=== PATIENT | female | born 1945 | race Caucasian/White ===

== ENCOUNTER → 2016-07-27 | Outpatient (CLI) | payer BC ==
[~2016-07-27] MED LIST: ASPI81TA28 PO; CHOL100010 PO; CITA20TA9 PO; DOXY-300 PO; HYDR12.55 PO; INSDGI SC; LEVO112T2 PO; LISI40TA PO; LORA0.5T12 PO; NVLGI SC; SIMV20TA2 PO; meclizine PO
--- NOTE | 2016-07-28 12:52 | MAMMOGRAPHY REPORT ---
BILATERAL DIGITAL SCREENING MAMMOGRAM WITH CAD: 07/27/2016 CLINICAL HISTORY: Routine screening. Patient has no complaints. TECHNIQUE: Current study was also evaluated with a Computer Aided Detection (CAD) system. Bilatera l CC and MLO views are obtained. COMPARISON: Comparison is made to exams dated: 07/23/2015 mammogram, 07/17/2014 mammogram, 07/16/2013 mammogram, 07/13/2011 mammogram - [facility], 06/22/2008, and 07/15/2012 mammogram - [facility]. BREAST COMPOSITION: The tissue of both breasts is heterogeneously dense, which may obscure small ma sses. FINDINGS: No suspicious masses, calcifications, or areas of architectural distortion are noted in e ither breast. There has been no significant interval change compared to prior exams. Scattered bilat eral benign-appearing calcifications are not significantly changed. IMPRESSION: ACR BI-RADS CATEGORY 2: BENIGN There is no mammographic evidence of malignancy. A 1 year screening mammogram is recommended. The p atient will receive written notification of the results. Approximately 10% of breast cancers are not detected with mammography. A negative mammographic repor t should not delay biopsy if a clinically suggestive mass is present. Stephani Nunez M.D. ah/:07/28/2016 07:45:59 Attending Technologist: Jesusita WILSON)(M), [facility] Computer System Specialist: Ana Herron, [facility] letter sent: Normal 1/2 BI-RADS Code: ACR BI-RADS Category 2: Benign
== END | disposition home or self-care (01) ==
LOC: C.MAMM 12:52
PROVIDERS: ATTEND Family Medicine
DX: Z12.31 Encounter for screening mammogram for malignant neoplasm of breast (principal)

== ENCOUNTER → 2016-08-30 | Outpatient (CLI) | payer BC ==
[2016-08-30 14:04] LABS: HEMATOCRIT 40.9 % (37-47); MEAN CELL VOLUME 92.1 fL (80-100); MEAN CORPUSCULAR HEMOGLOBIN 31.8 pg (25-34); MEAN CORPUSCULAR HGB CONC 34.5 g/dl (32-36); MEAN PLATELET VOLUME 10.6 fL (7.4-10.4); PLATELET COUNT 271 K/uL (130-400); RED BLOOD COUNT 4.44 M/uL (4.2-5.4); WHITE BLOOD COUNT 6.95 K/uL (4.8-10.8)
[2016-08-30 14:15] LABS: URINE APPEARANCE CLEAR (CLEAR); URINE BILIRUBIN NEG (NEG); URINE COLOR DK YELLOW; URINE NITRITE NEG (NEG); URINE PH 5.5 (4.5-7.5); URINE SPECIFIC GRAVITY 1.021 (1.000-1.030); UROBILINOGEN NEG (NEG)
[2016-08-30 14:18] LABS: MANUAL MICROSCOPIC REQUIRED? NO; REVIEW REQ? YES
[2016-08-30 14:35] LABS: URINE PROTIEN/CREAT RATIO 0.4 (0-0.2); URINE TOTAL PROTEIN 114.9 mg/dl (0-11.9)
[2016-08-30 17:15] LABS: BLOOD UREA NITROGEN 31 mg/dl (7-18); BUN/CREATININE RATIO 22.1 (10-20); CALCIUM 9.7 mg/dl (8.5-10.1); CARBON DIOXIDE 22 mmol/L (21-32); CHLORIDE 103 mmol/L (98-107); GLUCOSE 177 mg/dl (70-99); POTASSIUM 2.9 mmol/L (3.5-5.1); SODIUM 138 mmol/L (136-145)
[2016-08-30 17:16] LABS: PHOSPHORUS 2.4 mg/dl (2.5-4.9)
== END | disposition home or self-care (01) ==
LOC: C.LABBC 12:17
PROVIDERS: ATTEND Internal Medicine Nephrology
DX: N18.3 Chronic kidney disease, stage 3 (moderate) (principal); I12.9 Hypertensive chronic kidney disease with stage 1 through stage 4 chronic kidney disease, or unspecified chronic kidney disease; D64.9 Anemia, unspecified; N25.81 Secondary hyperparathyroidism of renal origin; E55.9 Vitamin D deficiency, unspecified

== ENCOUNTER → 2016-09-23 | Outpatient (CLI) | payer BC ==
[2016-09-23 11:15] LABS: BLOOD UREA NITROGEN 19 mg/dl (7-18); BUN/CREATININE RATIO 17.1 (10-20); CALCIUM 9.2 mg/dl (8.5-10.1); CARBON DIOXIDE 32 mmol/L (21-32); CHLORIDE 104 mmol/L (98-107); GLUCOSE 80 mg/dl (70-99); MAGNESIUM 1.6 mg/dl (1.8-2.4); PHOSPHORUS 2.1 mg/dl (2.5-4.9); POTASSIUM 3.3 mmol/L (3.5-5.1); SODIUM 143 mmol/L (136-145)
== END | disposition home or self-care (01) ==
LOC: C.LABBC 09:50
PROVIDERS: ATTEND Internal Medicine Nephrology
DX: N18.3 Chronic kidney disease, stage 3 (moderate) (principal); D64.9 Anemia, unspecified; N25.81 Secondary hyperparathyroidism of renal origin; F41.9 Anxiety disorder, unspecified; N20.0 Calculus of kidney; E55.9 Vitamin D deficiency, unspecified

== ENCOUNTER → 2017-02-27 | Outpatient (CLI) | payer BC ==
[2017-02-27 16:55] LABS: HEMATOCRIT 41.3 % (37-47); MEAN CELL VOLUME 97.2 fL (80-100); MEAN CORPUSCULAR HEMOGLOBIN 32.9 pg (25-34); MEAN CORPUSCULAR HGB CONC 33.9 g/dl (32-36); MEAN PLATELET VOLUME 10.5 fL (7.4-10.4); PLATELET COUNT 277 K/uL (130-400); RED BLOOD COUNT 4.25 M/uL (4.2-5.4); WHITE BLOOD COUNT 7.15 K/uL (4.8-10.8)
[2017-02-27 17:08] LABS: URINE APPEARANCE CLEAR (CLEAR); URINE BILIRUBIN NEG (NEG); URINE COLOR YELLOW; URINE NITRITE NEG (NEG); URINE PH 6.5 (4.5-7.5); UROBILINOGEN NEG (NEG)
[2017-02-27 17:09] LABS: MANUAL MICROSCOPIC REQUIRED? NO; REVIEW REQ? NO
[2017-02-27 17:17] LABS: BLOOD UREA NITROGEN 29 mg/dl (7-18); BUN/CREATININE RATIO 20.4 (10-20); CALCIUM 9.7 mg/dl (8.5-10.1); CARBON DIOXIDE 30 mmol/L (21-32); CHLORIDE 101 mmol/L (98-107); GLUCOSE 169 mg/dl (70-99); PHOSPHORUS 2.1 mg/dl (2.5-4.9); POTASSIUM 3.3 mmol/L (3.5-5.1); SODIUM 137 mmol/L (136-145)
[2017-02-27 17:25] LABS: URINE PROTIEN/CREAT RATIO 0.5 (0-0.2); URINE TOTAL PROTEIN 81.2 mg/dl (0-11.9)
== END | disposition home or self-care (01) ==
LOC: C.LABBC 14:08
PROVIDERS: ATTEND Internal Medicine Nephrology
DX: N18.3 Chronic kidney disease, stage 3 (moderate) (principal); I10 Essential (primary) hypertension; E11.9 Type 2 diabetes mellitus without complications; D64.9 Anemia, unspecified; E55.9 Vitamin D deficiency, unspecified; E87.6 Hypokalemia

== ENCOUNTER → 2017-05-31 | Outpatient (CLI) | payer BC ==
[2017-05-31 13:29] LABS: BLOOD UREA NITROGEN 29 mg/dl (7-18); BUN/CREATININE RATIO 19.6 (10-20); CALCIUM 9.7 mg/dl (8.5-10.1); CARBON DIOXIDE 29 mmol/L (21-32); CHLORIDE 99 mmol/L (98-107); GLUCOSE 264 mg/dl (70-99); POTASSIUM 3.3 mmol/L (3.5-5.1); SODIUM 137 mmol/L (136-145)
[2017-05-31 13:30] LABS: PHOSPHORUS 2.1 mg/dl (2.5-4.9)
== END | disposition home or self-care (01) ==
LOC: C.LABBC 11:21
PROVIDERS: ATTEND Internal Medicine Nephrology
DX: I12.9 Hypertensive chronic kidney disease with stage 1 through stage 4 chronic kidney disease, or unspecified chronic kidney disease (principal); N18.3 Chronic kidney disease, stage 3 (moderate); N25.81 Secondary hyperparathyroidism of renal origin; D64.9 Anemia, unspecified; E55.9 Vitamin D deficiency, unspecified; E87.6 Hypokalemia

== ENCOUNTER → 2017-10-23 | Outpatient (CLI) | payer BC ==
[2017-10-23 13:27] LABS: HEMATOCRIT 41.8 % (37-47); HEMOGLOBIN 13.9 g/dL (12.0-16.0); MEAN CELL VOLUME 95.7 fL (80-100); MEAN CORPUSCULAR HEMOGLOBIN 31.8 pg (25-34); MEAN CORPUSCULAR HGB CONC 33.3 g/dl (32-36); MEAN PLATELET VOLUME 10.5 fL (7.4-10.4); PLATELET COUNT 240 K/uL (130-400); RED CELL DISTRIBUTION WIDTH CV 14.2 % (11.5-14.5); WHITE BLOOD COUNT 6.76 K/uL (4.8-10.8)
[2017-10-23 14:12] LABS: ALBUMIN 3.4 gm/dl (3.4-5.0); BLOOD UREA NITROGEN 25 mg/dl (7-18); CALCIUM 8.7 mg/dl (8.5-10.1); CARBON DIOXIDE 29 mmol/L (21-32); CREATININE 1.27 mg/dl (0.60-1.20); GLUCOSE 209 mg/dl (70-99); POTASSIUM 3.6 mmol/L (3.5-5.1); SODIUM 139 mmol/L (136-145)
[2017-10-23 14:13] LABS: PHOSPHORUS 2.5 mg/dl (2.5-4.9)
== END | disposition home or self-care (01) ==
LOC: C.LABBC 11:52
PROVIDERS: ATTEND Internal Medicine Nephrology
DX: N18.3 Chronic kidney disease, stage 3 (moderate) (principal); I12.9 Hypertensive chronic kidney disease with stage 1 through stage 4 chronic kidney disease, or unspecified chronic kidney disease; D64.9 Anemia, unspecified; N25.81 Secondary hyperparathyroidism of renal origin; N20.0 Calculus of kidney; E55.9 Vitamin D deficiency, unspecified

== ENCOUNTER 2019-07-09 11:49 | Inpatient (IN) ==
[2019-07-09] MEDS ORDERED: ONDANSETRON INJ 2 MG/ML 2 ML VIAL IV STA (12:32)
[2019-07-09] MEDS ORDERED: SODIUM CHLORIDE 0.9% 1000ML 1,000 ML IV ONE (12:32)
[2019-07-09 12:41] LABS: Basophils # (auto) 0.02 K/uL (0-0.2); Basophils % (auto) 0.2 %; Eosinophils # (auto) 0.01 K/uL (0-0.5); Eosinophils % (auto) 0.1 %; Hematocrit (blood only) 44.4 % (37-47); Hemoglobin 15.3 g/dL (12.0-16.0); Immature Granulocytes # (auto) 0.02 K/uL (0.00-0.02); Immature Granulocytes % (auto) 0.2 %; Lymphocytes % (auto) 7.2 %; Mean Corpuscular Hemoglobin 31.5 pg (25-34); Mean Corpuscular Hgb Conc 34.5 g/dL (32-36); Mean Corpuscular Volume 91.5 fL (80-100); Mean Platelet Volume 11.8 fL (7.4-10.4); Monocytes # (auto) 0.76 K/uL (0.11-0.59); Monocytes % (auto) 6.8 %; Neutrophils # (auto) 9.57 K/uL (1.4-6.5); Neutrophils % (auto) 85.5 %; Platelet Count 170 K/uL (130-400); RDW Coefficient of Variation 14.8 % (11.5-14.5); RDW Standard Deviation 49.4 fL (36.4-46.3); Red Blood Count 4.85 M/uL (4.2-5.4); White Blood Count 11.18 K/uL (4.8-10.8)
[2019-07-09 12:49] LABS: Albumin Level 3.2 gm/dl (3.4-5.0); BUN Creatinine Ratio 11.5 (10-20); Calcium 9.1 mg/dl (8.5-10.1); Creatinine Clr Calc Pharmacy 39.5 ml/min; Est GFR (African American) 41.1; Est GFR (Non-African American) 35.5; Magnesium 1.3 mg/dl (1.8-2.4); Potassium 2.6 mmol/L (3.5-5.1)
[2019-07-09 13:04] LABS: Albumin Globulin Ratio 0.7 (0.9-2); Bilirubin,Total 1.6 mg/dl (0.2-1); Globulin 4.5 gm/dl (2.5-4.0); Thyroid Stimulating Hormone 0.037 uIu/ml (0.300-4.500); Total Protein 7.7 gm/dl (6.4-8.2); Troponin I 0.09 ng/ml (0-0.045)
[2019-07-09] MEDS ORDERED: POTASSIUM CHLORIDE 20 MEQ TABCR PO STA (13:08)
[2019-07-09] MEDS ORDERED: POTASSIUM CHLORIDE / WTR 10 MEQ/100 ML PLCT IV ONE (13:08)
[2019-07-09 13:19] LABS: T4 Free Thyroxine 3.1 ng/dl (0.8-1.6)
[2019-07-09 13:21] LABS: Appearance Urine Cloudy (Clear); Bacteria Urine Automated 4+ (Negative); Bilirubin Urine Negative (Negative); Blood Urine 2+ (Negative); Color Urine Dark Yellow; Glucose Urine UA Negative (Negative); Ketones Urine 2+ (Negative); Leukocyte Esterase Urine 2+ (Negative); Nitrite Urine Positive (Negative); Protein Urine 3+ (Negative); Urobilinogen Urine Negative (Negative); WBC Urine Automated >30 /hpf (0-5)
--- NOTE | 2019-07-09 13:29 | XRay Report ---
XR chest 1V portable CLINICAL HISTORY: 74 years-old Female presenting with weakness. TECHNIQUE: Portable upright AP view of the chest was obtained. COMPARISON: 03/14/2016. FINDINGS: Atherosclerosis of the aortic arch. Cardiac silhouette mildly enlarged. Prominence of the main pulmon louann artery. Interstitial prominence. Elevation of the right hemidiaphragm as on prior exam. Diffuse c oarsened lung markings. The reticulonodular appearance likely relates to pulmonary vasculature and in terstitium. No other focal opacity. No large effusion or pneumothorax. Osteopenia suspected. Gaseous distention of colon beneath the diaphragm. IMPRESSION: 1. Mild cardiomegaly with suspected volume overload and congestive change. Less likely the reticulon odular appearance could suggest a diffuse mild infiltrate. 2. Chronic mildly low lung volumes. ACT 112: Negative or not required by law. Electronically signed by: Justin Perry M.D. 07/09/2019 1:28 PM
[2019-07-09] MEDS ORDERED: CEFEPIME 2,000 MG/20 ML VIAL IV STA (13:42)
[2019-07-09] MEDS: MAGNESIUM SULFATE / D5W 1 GM/100 ML BAG IV SCH ×2 (13:44→15:19)
--- NOTE | 2019-07-09 14:37 | Electrocardiogram Report ---
Test Reason : Blood Pressure : / mmHG Vent. Rate : 088 BPM Atrial Rate : 088 BPM P-R Int : 194 ms QRS Dur : 094 ms QT Int : 400 ms P-R-T Axes : 042 223 -11 degrees QTc Int : 484 ms Sinus rhythm with Premature atrial complexes with Aberrant conduction Right superior axis deviation Nonspecific T wave abnormality Anterior leads Prolonged QT Abnormal ECG When compared with ECG of 14-MAR-2016 20:40, Premature ventricular complexes now present Right bundle branch block is no longer Present Confirmed by Burak Partida ([id number]) on 07/09/2019 2:36:49 PM Referred By: Confirmed By:Burak Partida
--- NOTE | 2019-07-09 15:52 | History & Physical Report ---
Date of Service July 09, 2019 Assessment & Plan (1) Weakness: (2) UTI (urinary tract infection): -Admit to [facility] with telemetry -Patient presenting from home with reports of generalized weakness and increased tremors -In the ED, UA suggestive of UTI; also found to be hypokalemic and hy pomagnesemic -Does not appear septic -S/p cefepime in the ED, will continue with IV ceftriaxone; no prior history of resistant bacteria -Follow urine and blood cultures -PT/OT (3) Diarrhea: -Possibly viral gastroenteritis -No abdominal pain or vomiting -Check stool culture and C. difficile (4) Elevated troponin: -Troponin 0.09 -Likely demand ischemia in the setting of acute illness and dehydration -EKG without acute ST changes -Continue cycle cardiac enzymes, check resting echo given murmur noted on exam (5) Hypomagnesemia: (6) Hypokalemia: -K+ 2.6, MG +1.3 -Likely due to GI loss from diarrhea -Replace, follow electrolytes (7) Hypothyroidism: WEIGHTLOSS -TSH 0.037, free T4 3.1; may be contributing to patient's worsening tremor -will reduce home dose of levothyroxine from 250 mcg daily to 225 mcg daily -Follow-up labs as an outpatient in 4 to 6 weeks -patient reports 20 pound weight loss over 2 months; consider EGD versus colonoscopy as outpatient (8) Diastolic dysfunction: -Echo 10/2018: EF 62%, grade 1 diastolic dysfunction, mild aortic valve stenosis -Appears dry on exam, holding Lasix (9) DM type 2 (diabetes mellitus, type 2): -Hgb A1c 7.8 05/2019 -Lantus and NovoLog per protocol while hospitalized (10) Hypertension: -BP controlled, continue losartan (11) Chronic kidney disease, stage III (moderate): - baseline creat runs in the low to mid 1s - creat noted to be 1.4 today - continue to monitor, avoid nephrotoxic agents when able (12) DVT prophylaxis: -SQ heparin History of Present Illness Chief Complaint: Weakness, tremors Primary Care Provider: Forrest Ortega DO 74-year-old female who presents the ED for evaluation of generalized weakness and tremors. Patient reports she has not been feeling well for the past couple of days. She is noted increased generalized weakness and tremors. She reports that typically she can ambulate with her walker however has not been able to do that. She also has been having diarrhea, reports 3-4 episodes per day. Denies bright red bleeding per rectum or dark tarry stools. Reports her appetite has been very poor, which is been ongoing issue for the past several weeks. Patient reports a 20 pound unintentional weight loss over the past couple of months. No abdominal pain, nausea, vomiting. She denies fevers and chills. No chest pain. Reports chronic exertional shortness of breath which is unchanged from baseline. She has lower extremity edema which is unchanged from baseline as well. No orthopnea. She denies lightheadedness, dizziness, diaphoresis, syncopal events. No urinary symptoms. In the ED, UA suggest UTI. Labs show K+ 2.6, MG +1.3, mildly elevated troponin 0.09, TSH 0.037, free T4 3.1. Patient was given IV cefepime, potassium and magnesium replacements, IVF. Allergies Allergy/AdvReac Type Severity Reaction Status Date / Time Sulfa (Sulfonamide Allergy Mild Rash Verified 07/09/19 13:43 Antibiotics) cefuroxime Allergy Unknown UNKNOWN Verified 07/09/19 13:43 primidone Allergy Unknown EAR Verified 07/09/19 13:43 RINGING, DIZZY Home Medications Home Medications Medication Instructions Recorded Confirmed Type cholecalciferol (vitamin D3) 1,000 unit PO DAILY 11/16/18 07/09/19 History [Vitamin D3] furosemide [Lasix] 20 mg PO DAILY 11/16/18 07/09/19 History insulin aspart U-100 [Novolog 0 unit SUBCUT DIRECTED 11/16/18 07/09/19 History Flexpen U-100 Insulin] insulin glargine [Lantus Solostar 22 unit SUBCUT HS 11/16/18 07/09/19 History U-100 Insulin] losartan 100 mg tablet 100 mg PO DAILY #30 tab 03/12/19 07/09/19 Rx hydroxyzine HCl 25 mg tablet 25 mg PO HS PRN 05/29/19 07/09/19 History Juice Plus Fibre Liquid 4 cap PO BID 07/09/19 07/09/19 History aspirin 650 mg PO DAILY 07/09/19 07/09/19 History atorvastatin 40 mg PO DAILY 07/09/19 07/09/19 History levothyroxine 50 mcg PO QAM 07/09/19 07/09/19 History levothyroxine 200 mcg PO QAM 07/09/19 07/09/19 History potassium chloride 10 meq PO TID 07/09/19 07/09/19 History Past Med/Surg History Family History Mother Diabetes Father Heart disease Social History Preferred Language: Tongan Communication Ability: Effective Electrolog Operator Required: No Beliefs That Will Affect Care: None Current Living Situation: Alone Other Information That Helps Us Care for You: No Feels Safe at Home: Yes Safety Concerns: Feels Safe At This Time Smoking Status: Never smoker Hx Alcohol Use: No Hx Substance Use: No Review of Systems Review of Systems: ROS per HPI, all other systems reviewed and negative Physical Exam Constitutional: WD/WN, vitals as above + frail appearing Eyes: PERRL, conjunctivae normal, anicteric sclerae ENMT: Ears: no external ear abnormality Nose: no external nose abnormality Mouth: + dry oral mucous membranes Respiratory: normal respiratory effort, lungs clear to auscultation Cardiovascular: Rate/Rhythm: regular rate and regular rhythm Heart Sounds: + murmur (Grade 3/6, systolic) Vessels: normal peripheral pulses Extremities: + pedal edema (+1-2, bilateral) Gastrointestinal (Abdomen): normal bowel sounds, soft, nontender, no hepatosplenomegaly Musculoskeletal: no cyanosis or clubbing, extremities motor strength 5/5 Skin: no rashes, warm and dry Neurologic: PERRL, EOMI, accommodation nl, no face palsy, no dysarthria Psychiatric: Orientation: alert and oriented x 3 Affect: + tearful affect Results & Data Vital Signs (Past 12 Hours) Vital Signs Temp Pulse Resp BP Pulse Ox 07/09/19 14:04 85 24 142/79 H 97 07/09/19 13:30 84 27 H 154/81 H 97 07/09/19 13:00 87 28 H 131/79 98 07/09/19 12:30 84 24 123/69 97 07/09/19 11:57 36.5 C 97 H 18 142/106 H 92 07/09/19 11:55 88 L Laboratory Results Short CBC 07/09/19 Range/Units 12:00 WBC 11.18 H (4.8-10.8) K/uL Hgb 15.3 (12.0-16.0) g/dL Hct 44.4 (37-47) % Plt Count 170 (130-400) K/uL BMP 07/09/19 12:00 Sodium 135 L Potassium 2.6 L Chloride 96 L Carbon Dioxide 31 BUN 17 Creatinine 1.43 H Glucose 200 H Calcium 9.1 Cardiac Enzymes 07/09/19 Range/Units 12:00 Troponin I 0.090 H* (0-0.045) ng/ml Liver Function 07/09/19 Range/Units 12:00 Total Bilirubin 1.6 H (0.2-1) mg/dl AST 23 (15-37) U/L ALT 21 (12-78) U/L Alkaline Phosphatase 72 (45-117) U/L Albumin 3.2 L (3.4-5.0) gm/dl Urine 07/09/19 Range/Units 12:58 Urine Color Dark Yellow Urine Appearance Cloudy A (Clear) Urine pH 6.0 (4.5-7.5) Ur Specific Sharon 1.020 (1.000-1.030) Urine Protein 3+ H (Negative) Urine Glucose (UA) Negative (Negative) Diagnostic Findings CXR IMPRESSION: 1. Mild cardiomegaly with suspected volume overload and congestive change. Less likely the reticulonodular appearance could suggest a diffuse mild infiltrate. 2. Chronic mildly low lung volumes. Code Status & VTE Plan Code Status Patient is a DNR as per my discussion with her. VTE Prophylaxis Plan VTE Prophylaxis will be ordered: Yes Supervising Physician Co-Signing Physician Notes I, Dr. Dewayne Carnes, have seen and examined the patient with nurse practitioner and would like to comment that: URINARY TRACT INFECTION HYPOKALEMIA HYPOMAGNESAEMIA ELEVATED TROPONINS HYPERTENSION HYPOTHYROIDISM (LEVOTHYROXINE SUPPLEMENTS AT HOME BUT LABS SUGGESTS TOO MUCH THYROID MEDICATION) WEIGHTLOSS VITAMIN D DEFICIENCY (ON VITAMIN D SUPPLEMENTS AT HOME) TYPE 2 DIABETES MELLITUS WITH RETIREMENT CURRENT USE OF INSULIN Chronic Bilateral Lower extremity Edema -leukocytosis of 11,000 with bacteria in the urine. ER provider gave cefepime. Patient to be on IV antibiotics for urinary tract infection and to await urine cultures to return -admission potassium 2.6 and ED provider started potassium supplementation and magnesium supplementation. Hospitalist team will continue supplementations of potassium and magnesium and trend the labs. Correcting serum magnesium to 2 will also help correct serum potassium to target 3.5 to 4 -will hold home Lasix for now until electrolytes improves -elevated initial troponin of 0.09. will trend labs and have patient monitored on telemetry, echocardiogram -monitor blood pressure off diuretics, can continue home dose losartan, continue home dose metoprolol succinate and asprin -Hypothyroidism. Levothyroxine supplements at home but labs suggests too much thyroid medication because TSH is 0.037 which is low and Free T4 is 3.1 which is high. Patient may benefit from cutting down the home dose 50 mcg daily to 25 mcg daily and then have repeat thyroid function tests by family medical doctor in 3 to 4 weeks after hospital discharge -in regards to weight loss -PT/OT evaluations for ambulation with bilateral lower extremity swelling which is reported to be chronic -on vitamin D supplements at home, check vitamin D levels -insulin as per protocol in regards to Type 2 Diabetes Mellitus with longer term current use of insulin -Agree with assessment and plan of nurse practitioner for other medical issues as described On Physical Exam General: no acute distress Neuro: extraoccular movements of eyes intact. no facial droop. Lungs: clear to asucultation bilaterally Heart: regular rate, murmur appreciated Abdomen: soft, nontender, positive bowel Extremities: bilateral lower extremity edema My colleague Dr. Freire will be following the patient as hospitalist starting on 07/10/2019 (1) UTI (urinary tract infection) Hematuria presence: with hematuria Urinary tract infection type: site unspecified Qualified Code(s): N39.0 - Urinary tract infection, site not specified; R31.9 - Hematuria, unspecified
[2019-07-09] MEDS ORDERED: GLUCOSE 40% GEL 15 GM TUBE PO PRN (17:09)
[2019-07-09] MEDS ORDERED: GLUCOSE 10 TABS/TUBE PO PRN (17:09)
[2019-07-09] MEDS ORDERED: cefTRIAXone SODIUM 1,000 MG/50 ML BAG IV SCH (17:09)
[2019-07-09] MEDS ORDERED: CARBOHYDRATES FOR HYPOGLYCEMIA PO PRN (17:09)
[2019-07-09] MEDS ORDERED: GLUCAGON FOR INJ 1 MG VIAL SQ PRN (17:09)
[2019-07-09] MEDS ORDERED: DEXTROSE 50% 50 ML SYRINGE IV PRN (17:09)
[2019-07-09] MEDS: NSS + 20MEQ KCL 20 MEQ/1,000 ML BAG IV SCH (17:48)
[2019-07-09 17:56] LABS: Creatinine Clr Calc Pharmacy 43.1 ml/min; Est GFR (African American) 45.7; Est GFR (Non-African American) 39.5; Potassium 2.9 mmol/L (3.5-5.1)
[2019-07-09 18:13] LABS: Phosphorus 3.2 mg/dl (2.5-4.9); Troponin I 0.093 ng/ml (0-0.045)
[2019-07-09] MEDS: INSULIN ASPART 100 UNITS/ML 3 ML PEN SC SCH ×2 (18:32→20:52)
[2019-07-09] MEDS ORDERED: POTASSIUM CHLORIDE 20 MEQ TABCR PO ONE (19:20)
[2019-07-09 19:53] LABS: BUN Creatinine Ratio 14.1 (10-20); Calcium 8.6 mg/dl (8.5-10.1); Creatinine Clr Calc Pharmacy 44.8 ml/min; Est GFR (African American) 47.9; Est GFR (Non-African American) 41.4; Magnesium 1.8 mg/dl (1.8-2.4); Potassium 3.2 mmol/L (3.5-5.1)
[2019-07-09 19:59] LABS: Troponin I 0.087 ng/ml (0-0.045)
--- NOTE | 2019-07-09 20:06 | Emergency Department Note ---
Entered by Catalina Patrick acting as a scribe for Theron Dyer MD History of Present Illness General Chief complaint: Illness Time Seen by Provider: 07/09/19 12:21 Source: patient and family (son) History of Present Illness Onset (ago): hour(s) (last night) Location: head Pain Consistency: + other (episode) Quality: + other (weakness) Associated symptoms: + denies other symptoms (cough, congestion, body aches, urinary symptoms) and + other (diffuse tremors, inability to ambulate with walker, incontinence in stool) The patient is a 74 year old female that is presenting to the Emergency Room with complaints of persistent weakness that started last night. The patient reports that she has had diffuse tremors and that she is unable to use her walker secondary to these symptoms. She states that she was incontinent of stool and urine last night. She notes that she felt too weak to get to the bathroom in time. She reports that she feels very thirsty and that her mouth is dry. The patient states that she has a history of tremors that is usually managed with medication. She notes that she is unsure of any diagnosis for these tremors. She reports that she has had a loss of appetite for the past 3 weeks and has lost weight as a result. She denies any recent cough, congestion, body aches, or urinary symptoms. The patients son notes that there was a miscommunication regarding the patients insulin dosage with her PCP just prior to the onset of the symptoms which resulted in the patient taking too much insulin. The patient notes that she saw her neurologist last week without any acute findings. She reports that she lives at home alone without any regular visits from a caregiver. Home Medications Home Medications Medication Instructions Recorded Confirmed Type cholecalciferol (vitamin D3) 1,000 unit PO DAILY 11/16/18 07/09/19 History [Vitamin D3] furosemide [Lasix] 20 mg PO DAILY 11/16/18 07/09/19 History insulin aspart U-100 [Novolog 0 unit SUBCUT DIRECTED 11/16/18 07/09/19 History Flexpen U-100 Insulin] insulin glargine [Lantus Solostar 22 unit SUBCUT HS 11/16/18 07/09/19 History U-100 Insulin] losartan 100 mg tablet 100 mg PO DAILY #30 tab 03/12/19 07/09/19 Rx hydroxyzine HCl 25 mg tablet 25 mg PO HS PRN 05/29/19 07/09/19 History Juice Plus Fibre Liquid 4 cap PO BID 07/09/19 07/09/19 History aspirin 650 mg PO DAILY 07/09/19 07/09/19 History atorvastatin 40 mg PO DAILY 07/09/19 07/09/19 History levothyroxine 50 mcg PO QAM 07/09/19 07/09/19 History levothyroxine 200 mcg PO QAM 07/09/19 07/09/19 History potassium chloride 10 meq PO TID 07/09/19 07/09/19 History Allergies Allergy/AdvReac Type Severity Reaction Status Date / Time Sulfa (Sulfonamide Allergy Mild Rash Verified 07/09/19 13:43 Antibiotics) cefuroxime Allergy Unknown UNKNOWN Verified 07/09/19 13:43 primidone Allergy Unknown EAR Verified 07/09/19 13:43 RINGING, DIZZY Past Med/Surg History Medical History Chronic kidney disease, stage III (moderate) Diastolic dysfunction DM type 2 (diabetes mellitus, type 2) Hypertension Hypothyroidism KAREEM (obstructive sleep apnea) Surgical History History of cataract surgery History of tubal ligation Family History Mother Diabetes Father Heart disease Social History Preferred Language: Icelandic Communication Ability: Effective 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 and A total of 10 systems reviewed and were otherwise negative Physical Exam Vital Signs Vital Signs - 24 hr 07/09/19 11:55 07/09/19 11:57 07/09/19 12:30 Temperature 36.5 C Temperature Source Oral Pulse Rate 97 H 84 Pulse Rate from SpO2 Sensor 80 Respiratory Rate 18 24 Respiratory Effort / Characteristics Spontaneous Blood Pressure 142/106 H 123/69 Blood Pressure Mean 118 81 Blood Pressure Position Lying Pulse Oximetry 88 L 92 97 Oxygen Delivery Method Room Air Room Air Nasal Cannula Oxygen Flow Rate 0 2 Sepsis Recent Fever Within 48 Hours No Sepsis New/Unexplained Change in Mental Status No Sepsis Action Taken by Nursing No Action Required Oxygen Flow Rate - Titration 2 Pulse Oximetry Post Tiitration 99 07/09/19 13:00 07/09/19 13:30 07/09/19 14:04 Temperature Temperature Source Pulse Rate 87 84 85 Pulse Rate from SpO2 Sensor 86 84 85 Respiratory Rate 28 H 27 H 24 Respiratory Effort / Characteristics Blood Pressure 131/79 154/81 H 142/79 H Blood Pressure Mean 97 113 105 Blood Pressure Position Pulse Oximetry 98 97 97 Oxygen Delivery Method Nasal Cannula Nasal Cannula Nasal Cannula Oxygen Flow Rate 2 2 2 Sepsis Recent Fever Within 48 Hours Sepsis New/Unexplained Change in Mental Status Sepsis Action Taken by Nursing Oxygen Flow Rate - Titration Pulse Oximetry Post Tiitration 07/09/19 14:30 07/09/19 15:00 Temperature Temperature Source Pulse Rate 87 83 Pulse Rate from SpO2 Sensor 87 82 Respiratory Rate 29 H 27 H Respiratory Effort / Characteristics Blood Pressure 142/77 H 139/67 Blood Pressure Mean 96 92 Blood Pressure Position Pulse Oximetry 98 98 Oxygen Delivery Method Nasal Cannula Nasal Cannula Oxygen Flow Rate 1 1 Sepsis Recent Fever Within 48 Hours Sepsis New/Unexplained Change in Mental Status Sepsis Action Taken by Nursing Oxygen Flow Rate - Titration Pulse Oximetry Post Tiitration GENERAL: Patient is in mild distress. HEENT: No acute trauma, normocephalic atraumatic, mucous membranes dry, no nasal congestion, no scleral icterus. NECK: No stridor, no adenopathy, no meningismus, trachea is midline. LUNGS: Clear to auscultation bilaterally, no wheeze, no rhonchi, breath sounds equal. HEART: Mildly tachycardic rate with regular rhythm. No murmurs noted. ABDOMEN: Soft, nontender, bowel sounds positive, no hernias, no peritonitis. EXTREMITIES: No cyanosis or edema, full range of motion of all the joints without pain or difficulty, no signs for acute trauma. NEUROLOGIC: Oriented x 3, no acute motor or sensory deficits, no focal weakness. SKIN: No rash, no jaundice, no diaphoresis. Course Course 1227:The patient was evaluated in room B10. A complete history and physical exa mination was performed. 1307: The patient's troponin is elevated. 1408: Upon reevaluation, the patient is resting comfortably. I discussed laboratory and radiographic results with the patient and her family. They verbalized agreement of the treatment plan. The patient will be evaluated for further management and care. 1420: I discussed the patients case with GAY Siddiqui, who will evaluate the patient for further management and care with Dr. Carnes as the attending physician. Administered Medications Potassium Chloride/Sodium Chloride (Normal Saline W/20 Meq Kcl) 20 meq in 1,000 mls @ 100 mls/hr IV .Q10H ABRAHAN Stop: 08/08/19 17:59 Last Admin: 07/09/19 17:48 Dose: 100 mls/hr Documented by: [id number] Insulin Aspart (Novolog Flexpen) 0 units SC ACHS ABRAHAN Stop: 08/08/19 17:44 Last Admin: 07/09/19 18:32 Dose: 4 units Documented by: [id number] Cosigned by: [id number] Discontinued Medications Sodium Chloride (Nss 1000ml) 1,000 mls @ 999 mls/hr IV .Q1H1M ONE Stop: 07/09/19 13:32 Last Infusion: 07/09/19 15:50 Dose: 0 mls/hr Documented by: [id number] Admin: 07/09/19 13:39 Dose: 999 mls/hr Documented by: [id number] Magnesium Sulfate/Dextrose (Magnesium Sulfate / D5w) 1 gm in 100 mls @ 100 mls/hr IV Q1H ABRAHAN Stop: 07/09/19 15:14 Last Infusion: 07/09/19 16:25 Dose: 0 mls/hr Documented by: [id number] Admin: 07/09/19 15:19 Dose: 100 mls/hr Documented by: [id number] Infusion: 07/09/19 15:18 Dose: 0 mls/hr Documented by: [id number] Admin: 07/09/19 13:44 Dose: 100 mls/hr Documented by: [id number] Potassium Chloride (K Dominic / Wtr) 10 meq in 100 mls @ 100 mls/hr IV ONE ONE Stop: 07/09/19 14:07 Last Infusion: 07/09/19 14:48 Dose: 0 mls/hr Documented by: [id number] Admin: 07/09/19 13:44 Dose: 100 mls/hr Documented by: [id number] Cefepime HCl (Maxipime) 2,000 mg in 20 mls @ 5 mls/min IV NOW STA; Protocol Stop: 07/09/19 13:45 Last Admin: 07/09/19 13:57 Dose: 5 mls/min Documented by: [id number] Ondansetron HCl (Zofran) 4 mg IV NOW STA Stop: 07/09/19 12:33 Last Admin: 07/09/19 13:39 Dose: 4 mg Documented by: [id number] Potassium Chloride (Klor-Con M20) 40 meq PO NOW STA Stop: 07/09/19 13:09 Last Admin: 07/09/19 13:42 Dose: 40 meq Documented by: [id number] Medical Decision Making Differential Diagnosis Differential diagnosis: Etiologies such as dehydration, UTI, sepsis or bacteremia, electrolyte imbalance, anemia, stroke, debilitation, dysrhythmia as well as others were entertained. Medical Records Attestation: I reviewed the patient's medical records. Home Medications Current Medication List: was personally reviewed by me Laboratory Data Attestation: I reviewed the patient's lab results. Result diagrams: 07/09/19 12:00 07/09/19 18:58 Lab Results 07/09/19 07/09/19 07/09/19 Range/Units 12:00 12:00 12:58 WBC 11.18 H (4.8-10.8) K/uL RBC 4.85 (4.2-5.4) M/uL Hgb 15.3 (12.0-16.0) g/dL Hct 44.4 (37-47) % MCV 91.5 (80-100) fL MCH 31.5 (25-34) pg MCHC 34.5 (32-36) g/dL RDW Std Deviation 49.4 H (36.4-46.3) fL RDW Coeff of Jelyl 14.8 H (11.5-14.5) % Plt Count 170 (130-400) K/uL MPV 11.8 H (7.4-10.4) fL Immature Gran % (Auto) 0.2 % Neut % (Auto) 85.5 % Lymph % (Auto) 7.2 % [place] % (Auto) 6.8 % Eos % (Auto) 0.1 % Baso % (Auto) 0.2 % Immature Gran # (Auto) 0.02 (0.00-0.02) K/uL Neut # (Auto) 9.57 H (1.4-6.5) K/uL Lymph # (Auto) 0.80 L (1.2-3.4) K/uL [place] # (Auto) 0.76 H (0.11-0.59) K/uL Eos # (Auto) 0.01 (0-0.5) K/uL Baso # (Auto) 0.02 (0-0.2) K/uL Sodium 135 L (136-145) mmol/L Potassium 2.6 L (3.5-5.1) mmol/L Chloride 96 L (98-107) mmol/L Carbon Dioxide 31 (21-32) mmol/L Anion Gap 8.0 (3-11) BUN 17 (7-18) mg/dl Creatinine 1.43 H (0.6-1.2) mg/dl Est Cr Clr Drug Dosing 39.5 ml/min Est GFR ( Amer) 41.1 Est GFR (Non-Af Amer) 35.5 BUN/Creatinine Ratio 11.5 (10-20) Glucose 200 H (70-99) mg/dl Lactate (0.4-2.0) mmol/L Calcium 9.1 (8.5-10.1) mg/dl Magnesium 1.3 L (1.8-2.4) mg/dl Total Bilirubin 1.6 H (0.2-1) mg/dl AST 23 (15-37) U/L ALT 21 (12-78) U/L Alkaline Phosphatase 72 (45-117) U/L Troponin I 0.090 H* (0-0.045) ng/ml Total Protein 7.7 (6.4-8.2) gm/dl Albumin 3.2 L (3.4-5.0) gm/dl Globulin 4.5 H (2.5-4.0) gm/dl Albumin/Globulin Ratio 0.7 L (0.9-2) TSH 0.037 L (0.300-4.500) uIu/ml Free T4 3.10 H (0.8-1.6) ng/dl Urine Color Dark Yellow Urine Appearance Cloudy A (Clear) Urine pH 6.0 (4.5-7.5) Ur Specific [place] 1.020 (1.000-1.030) Urine Protein 3+ H (Negative) Urine Glucose (UA) Negative (Negative) Urine Ketones 2+ H (Negative) Urine Blood 2+ H (Negative) Urine Nitrite Positive A (Negative) Urine Bilirubin Negative (Negative) Urine Urobilinogen Negative (Negative) Ur Leukocyte Esterase 2+ H (Negative) Urine WBC (Auto) >30 H (0-5) /hpf Urine RBC (Auto) 10-30 H (0-4) /hpf U Hyaline Cast (Auto) 1-5 (0-5) /lpf U Epithel Cells (Auto) 5-10 H (0-5) /lpf Urine Bacteria (Auto) 4+ H (Negative) 07/09/19 Range/Units 13:16 WBC (4.8-10.8) K/uL RBC (4.2-5.4) M/uL Hgb (12.0-16.0) g/dL Hct (37-47) % MCV (80-100) fL MCH (25-34) pg MCHC (32-36) g/dL RDW Std Deviation (36.4-46.3) fL RDW Coeff of Jelly (11.5-14.5) % Plt Count (130-400) K/uL MPV (7.4-10.4) fL Immature Gran % (Auto) % Neut % (Auto) % Lymph % (Auto) % [place] % (Auto) % Eos % (Auto) % Baso % (Auto) % Immature Gran # (Auto) (0.00-0.02) K/uL Neut # (Auto) (1.4-6.5) K/uL Lymph # (Auto) (1.2-3.4) K/uL [place] # (Auto) (0.11-0.59) K/uL Eos # (Auto) (0-0.5) K/uL Baso # (Auto) (0-0.2) K/uL Sodium (136-145) mmol/L Potassium (3.5-5.1) mmol/L Chloride (98-107) mmol/L Carbon Dioxide (21-32) mmol/L Anion Gap (3-11) BUN (7-18) mg/dl Creatinine (0.6-1.2) mg/dl Est Cr Clr Drug Dosing ml/min Est GFR ( Amer) Est GFR (Non-Af Amer) BUN/Creatinine Ratio (10-20) Glucose (70-99) mg/dl Lactate 1.8 (0.4-2.0) mmol/L Calcium (8.5-10.1) mg/dl Magnesium (1.8-2.4) mg/dl Total Bilirubin (0.2-1) mg/dl AST (15-37) U/L ALT (12-78) U/L Alkaline Phosphatase (45-117) U/L Troponin I (0-0.045) ng/ml Total Protein (6.4-8.2) gm/dl Albumin (3.4-5.0) gm/dl Globulin (2.5-4.0) gm/dl Albumin/Globulin Ratio (0.9-2) TSH (0.300-4.500) uIu/ml Free T4 (0.8-1.6) ng/dl Urine Color Urine Appearance (Clear) Urine pH (4.5-7.5) Ur Specific [place] (1.000-1.030) Urine Protein (Negative) Urine Glucose (UA) (Negative) Urine Ketones (Negative) Urine Blood (Negative) Urine Nitrite (Negative) Urine Bilirubin (Negative) Urine Urobilinogen (Negative) Ur Leukocyte Esterase (Negative) Urine WBC (Auto) (0-5) /hpf Urine RBC (Auto) (0-4) /hpf U Hyaline Cast (Auto) (0-5) /lpf U Epithel Cells (Auto) (0-5) /lpf Urine Bacteria (Auto) (Negative) Imaging Data Radiologist's Impression: Radiology results as stated below per my review and the radiologist's interpretation: XR chest 1V portable CLINICAL HISTORY: 74 years-old Female presenting with weakness. TECHNIQUE: Portable upright AP view of the chest was obtained. COMPARISON: 03/14/2016. FINDINGS: Atherosclerosis of the aortic arch. Cardiac silhouette mildly enlarged. Prominence of the main pulmonary artery. Interstitial prominence. Elevation of the right hemidiaphragm as on prior exam. Diffuse coarsened lung markings. The reticulonodular appearance likely relates to pulmonary vasculature and interstitium. No other focal opacity. No large effusion or pneumothorax. Osteopenia suspected. Gaseous distention of colon beneath the diaphragm. IMPRESSION: 1. Mild cardiomegaly with suspected volume overload and congestive change. Less likely the reticulonodular appearance could suggest a diffuse mild infiltrate. 2. Chronic mildly low lung volumes. ACT 112: Negative or not required by law. Electronically signed by: Justin Perry M.D. 07/09/2019 1:28 PM ECG Data Attestation: I personally reviewed and interpreted this ECG as follows: Indication: + weakness Rate (beats per minute): 88 Rhythm: + sinus rhythm ECG ST segments: + Nonspecific ST abnormalities (anterior and lateral leads); no ST elevation ECG Findings: + PACs, + PVCs and + Other (QT-c 484) Comparison ECG Date: from (03/14/2016) Change: the following changes noted (RBBB is no longer present) Blood Pressure Blood Pressure Findings: Elevated blood pressure Blood Pressure Disposition: Referred to patients primary care provider [facility] Narrative There is a mild leukocytosis, this could be consistent with infection. No worrisome anemia. Renal panel testing does show some dehydration with a higher creatinine. Patient does have a low potassium and low magnesium. No liver worrisome enzyme elevation. The patient appears to be somewhat hyperthyroid as the T4 is high and the TSH is low. Of note, she does take thyroid medication. EKG shows a sinus rhythm with some nonspecific changes. No evidence for acute GA. The troponin was slightly elevated consistent with cardiac strain or possibly mismatch. Urinalysis is consistent with infection. Lactic acid level is not elevated making sepsis less likely. Chest film shows some parenchymal change versus some mild CHF, no pneumonia. On exam, the patient seemed quite dehydrated. The patient received IV magnesium, she was given IV potassium and oral potassium. She received IV Zofran, IV cefepime. She was given IV saline. The patient has multiple electrolyte abnormalities require further replacement. She is dehydrated, she has a UTI. I do think all of these findings have led to her weakness and increased shaking. She is not stable for discharge home. She cannot care for herself, she cannot even use her walker. I spoke to the family, I talked to the patient and case management. The on-call hospitalist has been consulted. Continuous Cardiac Monitoring: An order was placed for continuous cardiac monitoring. Indication: Weakness Rhythm: Sinus rhythm Rate: 92bpm Other: PVC noted Impression & Plan Weakness, UTI (urinary tract infection), Elevated troponin, Hypomagnesemia, H ypokalemia Discharge Plan Visit Data *Final* Discharge Date/Time: 07/09/19 16:24 Chief Complaint: Illness ED Provider: Theron Dyer Discharge Problem: Weakness, UTI (urinary tract infection), Elevated troponin, Hypomagnesemia, Hypokalemia Patient Disposition: Admitted As Inpatient Discharge Instructions Interventions: ED Discharge Assessment Last Done: 07/09/19 16:24 Discharge Problem: UTI (urinary tract infection) Qualifiers: Urinary tract infection type: site unspecified Hematuria presence: with hematuria Qualified Code(s): N39.0 - Urinary tract infection, site not specified The scribe's documentation has been prepared under my direction and personally reviewed by me in its entirety. I confirm that the note above accurately reflects all work, treatment, procedures, and medical decision making performed by me.
[2019-07-09] MEDS: INSULIN GLARGINE SOLOSTAR 100 UNITS/ML 3 ML PEN SC SCH (20:53)
[2019-07-09] MEDS: cefTRIAXone SODIUM 2,000 MG in DEXTROSE 5% 50 ML IV SCH (21:50)
[2019-07-09] MEDS: HEPARIN SOD 5,000 UNIT/0.5 ML VIAL SQ SCH (21:51)
[2019-07-10 00:39] LABS: Basophils # (auto) 0.02 K/uL (0-0.2); Basophils % (auto) 0.2 %; Hematocrit (blood only) 39.9 % (37-47); Hemoglobin 13.5 g/dL (12.0-16.0); Immature Granulocytes # (auto) 0.01 K/uL (0.00-0.02); Immature Granulocytes % (auto) 0.1 %; Lymphocytes # (auto) 1.34 K/uL (1.2-3.4); Lymphocytes % (auto) 13.2 %; Mean Corpuscular Hemoglobin 31.1 pg (25-34); Mean Corpuscular Hgb Conc 33.8 g/dL (32-36); Mean Corpuscular Volume 91.9 fL (80-100); Mean Platelet Volume 11.4 fL (7.4-10.4); Monocytes # (auto) 0.73 K/uL (0.11-0.59); Monocytes % (auto) 7.2 %; Neutrophils # (auto) 8.07 K/uL (1.4-6.5); Neutrophils % (auto) 79.3 %; Platelet Count 125 K/uL (130-400); RDW Coefficient of Variation 14.8 % (11.5-14.5); Red Blood Count 4.34 M/uL (4.2-5.4); White Blood Count 10.17 K/uL (4.8-10.8)
[2019-07-10 00:57] LABS: Albumin Level 2.6 gm/dl (3.4-5.0); Calcium 8.4 mg/dl (8.5-10.1); Creatinine Clr Calc Pharmacy 44.5 ml/min; Est GFR (African American) 47.5; Magnesium 1.7 mg/dl (1.8-2.4); Potassium 3.3 mmol/L (3.5-5.1)
[2019-07-10 01:03] LABS: Albumin Globulin Ratio 0.7 (0.9-2); Globulin 3.8 gm/dl (2.5-4.0); Total Protein 6.4 gm/dl (6.4-8.2); Troponin I 0.093 ng/ml (0-0.045)
[2019-07-10] MEDS: NSS + 20MEQ KCL 20 MEQ/1,000 ML BAG IV SCH (03:51)
[2019-07-10] MEDS: HEPARIN SOD 5,000 UNIT/0.5 ML VIAL SQ SCH ×3 (05:59→20:59)
[2019-07-10] MEDS: LEVOTHYROXINE SODIUM 75 MCG TABLET PO SCH (06:00)
[2019-07-10] MEDS ORDERED: POTASSIUM CHLORIDE 20 MEQ TABCR PO STA ×2 (07:58→21:33)
[2019-07-10] MEDS: ACETAMINOPHEN 325 MG TAB PO PRN (08:24)
[2019-07-10] MEDS: CHOLECALCIFEROL 1,000 UNITS TAB PO SCH (08:25)
[2019-07-10] MEDS: ASPIRIN 81 MG ECTAB PO SCH (08:25)
[2019-07-10] MEDS: LOSARTAN POTASSIUM 50 MG TAB PO SCH (08:25)
[2019-07-10] MEDS: FUROSEMIDE 20 MG TAB PO SCH (08:25)
[2019-07-10] MEDS: ATORVASTATIN 40 MG TAB PO SCH (08:25)
[2019-07-10] MEDS ORDERED: MAGNESIUM SULFATE / D5W 1 GM/100 ML BAG IV ONE ×2 (08:30→22:30)
[2019-07-10] MEDS: INSULIN ASPART 100 UNITS/ML 3 ML PEN SC SCH ×4 (08:33→20:54)
--- NOTE | 2019-07-10 16:33 | Hospitalist Progress Note ---
Date of Service July 10, 2019 Assessment & Plan (1) Weakness: (2) UTI (urinary tract infection): Urinary tract infection Gram-negative bacteremia Blood culture: Gram-negative bacilli Urine culture: E. coli--sensitivities pending ECHO Reviewed Continue IV Rocephin 2 g daily Received gentle IV fluids PT/OT (3) Diarrhea: Possibly viral gastroenteritis stool culture and C. difficile pednig (4) Elevated troponin: Mild Troponin elevation Likely demand ischemia ECHO no regional wall motion abnormalities Patient denies any chest pain (5) Hypomagnesemia: (6) Hypokalemia: Hypokalemia Hypomagnesemia Replete electrolytes as needed (7) Hypothyroidism: Weight loss TSH 0.037, free T4 3.1; may be contributing to patient's worsening tremor Reduced levothyroxine from 250 mcg to 225 mcg daily Will need repeat labs as outpatient in 4 to 6 weeks Further screening tests for weight loss as outpatient (8) Diastolic dysfunction: Echo 10/2018: EF 62%, grade 1 diastolic dysfunction, mild aortic valve stenosis Continue Lasix Monitor volume status (9) DM type 2 (diabetes mellitus, type 2): Hgb A1c 7.8 05/2019 Lantus and NovoLog per protocol while hospitalized (10) Hypertension: continue losartan (11) Chronic kidney disease, stage III (moderate): Baseline Cr low to mid 1s Cr at baseline Monitor renal function (12) DVT prophylaxis: SQ heparin CODE STATUS DNI DNR Disposition PT OT prior to discharge Subjective Patient is seen and examined at bedside Admits to having increased urinary frequency Reports feeling very tired and has generalized weakness Denies any dysuria, hematuria, chest, flank or abdominal pain Family at bedside Offers no other complaints Review of Systems Review of Systems: All systems reviewed & are unremarkable except as noted in HPI & below Physical Exam Physical Exam: Physical Exam: Vitals signs as noted above General Appearance:Moderately built and nourished, frail, elderly, no apparent distress Head: normocephalic, Atraumatic Eyes: normal inspection, EOMI Neck: supple, Trachea midline Respiratory/Chest: Normal breath sounds, basal crackles, No accessory muscle use Cardiovascular: S1, S2, + systolic murmur Abdomen/GI:Soft, Non tender, Bowel sounds present Extremities/Musculoskelatal:normal inspection, trace edema Neurologic/Psych:AAOX3, grossly no focal neurological deficits Skin: normal color, warm Results & Data Vital Signs (Past 12 Hours) Vital Signs Temp Pulse Pulse Resp BP Pulse Ox 07/10/19 15:18 86 07/10/19 15:04 36.2 C L 83 16 117/76 96 07/10/19 14:57 98 07/10/19 11:26 37.1 C 83 18 107/68 98 07/10/19 07:46 37.4 C 82 28 H 156/68 H 95 07/10/19 07:26 107 H Laboratory Results Short CBC 07/10/19 Range/Units 00:31 WBC 10.17 (4.8-10.8) K/uL Hgb 13.5 (12.0-16.0) g/dL Hct 39.9 (37-47) % Plt Count 125 L (130-400) K/uL BMP 07/09/19 07/09/19 07/10/19 17:22 18:58 00:31 Sodium 136 134 L 135 L Potassium 2.9 L 3.2 L 3.3 L Chloride 99 98 101 Carbon Dioxide 31 31 27 BUN 18 18 19 H Creatinine 1.31 H 1.26 H 1.27 H Glucose 221 H 230 H 178 H Calcium 9.0 8.6 8.4 L Cardiac Enzymes 07/09/19 07/09/19 07/10/19 Range/Units 17:22 18:58 00:31 Troponin I 0.093 H* 0.087 H* 0.093 H* (0-0.045) ng/ml Liver Function 07/10/19 Range/Units 00:31 Total Bilirubin 1.0 D (0.2-1) mg/dl AST 18 (15-37) U/L ALT 15 (12-78) U/L Alkaline Phosphatase 53 (45-117) U/L Albumin 2.6 L (3.4-5.0) gm/dl (1) UTI (urinary tract infection) Hematuria presence: with hematuria Urinary tract infection type: site unspecified Qualified Code(s): N39.0 - Urinary tract infection, site not specified; R31.9 - Hematuria, unspecified
[2019-07-10] MEDS: POTASSIUM CHLORIDE 10 MEQ TABCR PO SCH (20:52)
[2019-07-10] MEDS: INSULIN GLARGINE SOLOSTAR 100 UNITS/ML 3 ML PEN SC SCH (20:53)
[2019-07-10] MEDS: cefTRIAXone SODIUM 2,000 MG in DEXTROSE 5% 50 ML IV SCH (21:06)
[2019-07-10 22:51] LABS: BUN Creatinine Ratio 16.5 (10-20); Calcium 8.7 mg/dl (8.5-10.1); Creatinine Clr Calc Pharmacy 50.7 ml/min; Est GFR (African American) 56.5; Est GFR (Non-African American) 48.7; Magnesium 1.8 mg/dl (1.8-2.4); Potassium 3.6 mmol/L (3.5-5.1)
--- NOTE | 2019-07-10 23:48 | Communication Note ---
Date of Service: July 10, 2019 Made aware by RN of NSVT episode. SBP 160, cardiac rate 110s AP NSVT Initiate beta-марина to suppress ectopy Replace electrolytes Will relay to AM provider.
[2019-07-11] MEDS: METOPROLOL TARTRATE 25 MG TAB PO SCH ×3 (00:26→20:57)
[2019-07-11] MEDS: ACETAMINOPHEN 325 MG TAB PO PRN (00:27)
[2019-07-11 06:00] LABS: Hematocrit (blood only) 37.8 % (37-47); Hemoglobin 12.5 g/dL (12.0-16.0); Mean Corpuscular Hemoglobin 31.2 pg (25-34); Mean Corpuscular Hgb Conc 33.1 g/dL (32-36); Mean Corpuscular Volume 94.3 fL (80-100); Mean Platelet Volume 11.8 fL (7.4-10.4); Platelet Count 114 K/uL (130-400); RDW Standard Deviation 51.1 fL (36.4-46.3); Red Blood Count 4.01 M/uL (4.2-5.4); White Blood Count 7.45 K/uL (4.8-10.8)
[2019-07-11] MEDS: HEPARIN SOD 5,000 UNIT/0.5 ML VIAL SQ SCH ×3 (06:02→21:12)
[2019-07-11] MEDS: LEVOTHYROXINE SODIUM 75 MCG TABLET PO SCH (06:02)
[2019-07-11 06:17] LABS: BUN Creatinine Ratio 15.4 (10-20); Calcium 8.6 mg/dl (8.5-10.1); Creatinine Clr Calc Pharmacy 50.7 ml/min; Est GFR (African American) 56.5; Est GFR (Non-African American) 48.7; Potassium 3.7 mmol/L (3.5-5.1)
[2019-07-11] MEDS: CHOLECALCIFEROL 1,000 UNITS TAB PO SCH (08:24)
[2019-07-11] MEDS: ATORVASTATIN 40 MG TAB PO SCH (08:24)
[2019-07-11] MEDS: POTASSIUM CHLORIDE 10 MEQ TABCR PO SCH ×3 (08:24→20:58)
[2019-07-11] MEDS: ASPIRIN 81 MG ECTAB PO SCH (08:24)
[2019-07-11] MEDS: INSULIN ASPART 100 UNITS/ML 3 ML PEN SC SCH ×4 (08:24→21:05)
[2019-07-11] MEDS: LOSARTAN POTASSIUM 50 MG TAB PO SCH (08:25)
[2019-07-11] MEDS: FUROSEMIDE 20 MG TAB PO SCH (08:25)
--- NOTE | 2019-07-11 19:18 | Hospitalist Progress Note ---
Date of Service July 11, 2019 Assessment & Plan (1) Weakness: (2) UTI (urinary tract infection): Urinary tract infection E. coli bacteremia Blood culture: E. coli Urine culture: E. coli ECHO Reviewed Continue IV Rocephin 2 g daily Received gentle IV fluids Continue PT OT (3) Diarrhea: Possibly viral gastroenteritis Diarrhea improved (4) Elevated troponin: Mild Troponin elevation Likely demand ischemia ECHO no regional wall motion abnormalities Patient denies any chest pain (5) Hypomagnesemia: (6) Hypokalemia: Hypokalemia Hypomagnesemia Replete electrolytes as needed (7) Hypothyroidism: Weight loss TSH 0.037, free T4 3.1; may be contributing to patient's worsening tremor Reduced levothyroxine from 250 mcg to 225 mcg daily Will need repeat labs as outpatient in 4 to 6 weeks Further screening tests for weight loss as outpatient (8) Diastolic dysfunction: Echo 10/2018: EF 62%, grade 1 diastolic dysfunction, mild aortic valve stenosis Continue Lasix Monitor volume status (9) DM type 2 (diabetes mellitus, type 2): Hgb A1c 7.8 05/2019 Lantus and NovoLog per protocol while hospitalized (10) Hypertension: continue losartan (11) Chronic kidney disease, stage III (moderate): Baseline Cr low to mid 1s Cr at baseline Monitor renal function (12) DVT prophylaxis: SQ heparin CODE STATUS DNI DNR Disposition PT OT prior to discharge Subjective Patient is seen and examined at bedside Feels better today Denies any pain Still has significant generalized weakness Denies any dysuria, hematuria, chest, flank or abdominal pain Family at bedside No new complaints Review of Systems Review of Systems: All systems reviewed & are unremarkable except as noted in HPI & below Physical Exam Physical Exam: Physical Exam: Vitals signs as noted above General Appearance:Moderately built and nourished, frail, elderly, no apparent distress Head: normocephalic, Atraumatic Eyes: normal inspection, EOMI Neck: supple, Trachea midline Respiratory/Chest: Normal breath sounds, basal crackles, No accessory muscle use Cardiovascular: S1, S2, + systolic murmur Abdomen/GI:Soft, Non tender, Bowel sounds present Extremities/Musculoskelatal:normal inspection, trace edema Neurologic/Psych:AAOX3, grossly no focal neurological deficits Skin: normal color, warm Results & Data Vital Signs (Past 12 Hours) Vital Signs Temp Pulse Pulse Resp BP BP Pulse Ox 07/11/19 18:58 36.6 C 76 18 170/81 H 99 07/11/19 15:46 93 H 07/11/19 15:08 36.5 C 84 20 109/69 99 07/11/19 11:27 37.3 C 91 H 16 126/81 95 07/11/19 09:00 85 07/11/19 07:42 36.3 C L 86 16 145/87 H 97 Laboratory Results Short CBC 07/11/19 Range/Units 05:16 WBC 7.45 (4.8-10.8) K/uL Hgb 12.5 (12.0-16.0) g/dL Hct 37.8 (37-47) % Plt Count 114 L (130-400) K/uL BMP 07/10/19 07/11/19 22:16 05:16 Sodium 136 137 Potassium 3.6 3.7 Chloride 102 104 Carbon Dioxide 29 32 BUN 18 17 Creatinine 1.10 1.10 Glucose 187 H 115 H Calcium 8.7 8.6 (1) UTI (urinary tract infection) Hematuria presence: with hematuria Urinary tract infection type: site unspecified Qualified Code(s): N39.0 - Urinary tract infection, site not specified; R31.9 - Hematuria, unspecified
[2019-07-11] MEDS: INSULIN GLARGINE SOLOSTAR 100 UNITS/ML 3 ML PEN SC SCH (21:05)
[2019-07-11] MEDS: cefTRIAXone SODIUM 2,000 MG in DEXTROSE 5% 50 ML IV SCH (22:05)
[2019-07-12] MEDS: ACETAMINOPHEN 325 MG TAB PO PRN (04:43)
[2019-07-12] MEDS: LEVOTHYROXINE SODIUM 75 MCG TABLET PO SCH (05:47)
[2019-07-12] MEDS: HEPARIN SOD 5,000 UNIT/0.5 ML VIAL SQ SCH ×3 (05:48→21:53)
[2019-07-12 07:36] LABS: Hematocrit (blood only) 37.4 % (37-47); Hemoglobin 12.2 g/dL (12.0-16.0); Mean Corpuscular Hemoglobin 30.9 pg (25-34); Mean Corpuscular Hgb Conc 32.6 g/dL (32-36); Mean Corpuscular Volume 94.7 fL (80-100); Mean Platelet Volume 11.6 fL (7.4-10.4); Platelet Count 137 K/uL (130-400); RDW Coefficient of Variation 14.7 % (11.5-14.5); RDW Standard Deviation 50.7 fL (36.4-46.3); Red Blood Count 3.95 M/uL (4.2-5.4); White Blood Count 6.67 K/uL (4.8-10.8)
[2019-07-12] MEDS: INSULIN ASPART 100 UNITS/ML 3 ML PEN SC SCH ×4 (08:02→20:30)
[2019-07-12 08:03] LABS: BUN Creatinine Ratio 14.7 (10-20); Calcium 9.1 mg/dl (8.5-10.1); Creatinine Clr Calc Pharmacy 60.9 ml/min; Est GFR (Non-African American) 61.3; Magnesium 1.8 mg/dl (1.8-2.4); Potassium 3.6 mmol/L (3.5-5.1)
[2019-07-12] MEDS: METOPROLOL TARTRATE 25 MG TAB PO SCH ×2 (08:03→20:24)
[2019-07-12] MEDS: FUROSEMIDE 20 MG TAB PO SCH (08:03)
[2019-07-12] MEDS: POTASSIUM CHLORIDE 10 MEQ TABCR PO SCH ×3 (08:03→20:24)
[2019-07-12] MEDS: CHOLECALCIFEROL 1,000 UNITS TAB PO SCH (08:03)
[2019-07-12] MEDS: ATORVASTATIN 40 MG TAB PO SCH (08:03)
[2019-07-12] MEDS: ASPIRIN 81 MG ECTAB PO SCH (08:03)
[2019-07-12] MEDS: LOSARTAN POTASSIUM 50 MG TAB PO SCH (08:56)
--- NOTE | 2019-07-12 18:11 | Hospitalist Progress Note ---
Date of Service July 12, 2019 Assessment & Plan (1) Weakness: (2) UTI (urinary tract infection): Urinary tract infection E. coli bacteremia Blood culture: E. coli Urine culture: E. coli ECHO Reviewed Continue IV Rocephin 2 g daily Received gentle IV fluids Continue PT OT Continue current management Wean off of supplemental oxygen as able (3) Diarrhea: Possibly viral gastroenteritis Diarrhea improved Had semi-formed BM today (4) Elevated troponin: Mild Troponin elevation Likely demand ischemia ECHO no regional wall motion abnormalities Patient denies any chest pain (5) Hypomagnesemia: (6) Hypokalemia: Hypokalemia Hypomagnesemia Replete electrolytes as needed (7) Hypothyroidism: Weight loss TSH 0.037, free T4 3.1; may be contributing to patient's worsening tremor Reduced levothyroxine from 250 mcg to 225 mcg daily Will need repeat labs as outpatient in 4 to 6 weeks Further screening tests for weight loss as outpatient (8) Diastolic dysfunction: Echo 10/2018: EF 62%, grade 1 diastolic dysfunction, mild aortic valve stenosis Continue Lasix Monitor volume status (9) DM type 2 (diabetes mellitus, type 2): Hgb A1c 7.8 05/2019 Lantus and NovoLog per protocol while hospitalized (10) Hypertension: continue losartan (11) Chronic kidney disease, stage III (moderate): Baseline Cr low to mid 1s Cr at baseline Monitor renal function (12) DVT prophylaxis: SQ heparin CODE STATUS DNI DNR Disposition PT OT: Recommends rehab placement Subjective Patient is seen and examined at bedside Slowly improving Had semi-formed BM today Appetite slowly improving as well Denies any chest pain, shortness of breath, dizziness, abdominal pain Review of Systems Review of Systems: All systems reviewed & are unremarkable except as noted in HPI & below Physical Exam Physical Exam: Physical Exam: Vitals signs as noted above General Appearance:Moderately built and nourished, frail, elderly, no apparent distress Head: normocephalic, Atraumatic Eyes: normal inspection, EOMI Neck: supple, Trachea midline Respiratory/Chest: Normal breath sounds, b/l basal crackles Cardiovascular: S1, S2, + systolic murmur Abdomen/GI:Soft, Non tender, Bowel sounds present Extremities/Musculoskelatal:normal inspection, trace edema Neurologic/Psych:AAOX3, grossly no focal neurological deficits Skin: normal color, warm Results & Data Vital Signs (Past 12 Hours) Vital Signs Temp Pulse Pulse Resp BP Pulse Ox 07/12/19 15:48 84 07/12/19 15:00 36.4 C L 99 H 20 113/72 99 07/12/19 11:00 36.3 C L 72 20 107/75 100 07/12/19 09:00 82 07/12/19 07:00 36.6 C 77 20 126/81 97 Laboratory Results Short CBC 07/12/19 Range/Units 07:02 WBC 6.67 (4.8-10.8) K/uL Hgb 12.2 (12.0-16.0) g/dL Hct 37.4 (37-47) % Plt Count 137 (130-400) K/uL BMP 07/12/19 07:02 Sodium 137 Potassium 3.6 Chloride 102 Carbon Dioxide 32 BUN 13 Creatinine 0.91 Glucose 142 H Calcium 9.1 (1) UTI (urinary tract infection) Hematuria presence: with hematuria Urinary tract infection type: site unspecified Qualified Code(s): N39.0 - Urinary tract infection, site not specified; R31.9 - Hematuria, unspecified
[2019-07-12] MEDS ORDERED: FUROSEMIDE 20 MG TAB PO ONE (18:13)
[2019-07-12] MEDS: INSULIN GLARGINE SOLOSTAR 100 UNITS/ML 3 ML PEN SC SCH (20:29)
[2019-07-12] MEDS: cefTRIAXone SODIUM 2,000 MG in DEXTROSE 5% 50 ML IV SCH (21:48)
[2019-07-13] MEDS: HEPARIN SOD 5,000 UNIT/0.5 ML VIAL SQ SCH ×3 (05:53→21:30)
[2019-07-13] MEDS: LEVOTHYROXINE SODIUM 75 MCG TABLET PO SCH (05:53)
[2019-07-13 06:35] LABS: BUN Creatinine Ratio 13.2 (10-20); Calcium 8.7 mg/dl (8.5-10.1); Est GFR (African American) 78.2; Est GFR (Non-African American) 67.5; Magnesium 1.5 mg/dl (1.8-2.4); Potassium 3.4 mmol/L (3.5-5.1)
[2019-07-13] MEDS ORDERED: POTASSIUM CHLORIDE 20 MEQ TABCR PO STA (07:57)
[2019-07-13] MEDS: INSULIN ASPART 100 UNITS/ML 3 ML PEN SC SCH ×4 (08:13→21:33)
[2019-07-13] MEDS: POTASSIUM CHLORIDE 10 MEQ TABCR PO SCH ×3 (08:13→21:26)
[2019-07-13] MEDS: CHOLECALCIFEROL 1,000 UNITS TAB PO SCH (08:13)
[2019-07-13] MEDS: ATORVASTATIN 40 MG TAB PO SCH (08:13)
[2019-07-13] MEDS: LOSARTAN POTASSIUM 50 MG TAB PO SCH (08:13)
[2019-07-13] MEDS: FUROSEMIDE 20 MG TAB PO SCH (08:13)
[2019-07-13] MEDS: ASPIRIN 81 MG ECTAB PO SCH (08:13)
[2019-07-13] MEDS: METOPROLOL TARTRATE 25 MG TAB PO SCH ×2 (08:14→21:27)
[2019-07-13] MEDS: MAGNESIUM SULFATE / D5W 1 GM/100 ML BAG IV SCH ×2 (08:29→09:33)
--- NOTE | 2019-07-13 16:20 | Hospitalist Progress Note ---
Date of Service July 13, 2019 Assessment & Plan (1) Weakness: (2) UTI (urinary tract infection): Urinary tract infection E. coli bacteremia Blood culture: E. coli Urine culture: E. coli ECHO Reviewed Continue IV Rocephin 2 g daily Received gentle IV fluids Continue PT OT: Needs rehab placement Plan to complete 2-week course of antibiotics (3) Diarrhea: Possibly viral gastroenteritis Diarrhea improved (4) Elevated troponin: Mild Troponin elevation Likely demand ischemia ECHO no regional wall motion abnormalities Patient denies any chest pain (5) Hypomagnesemia: (6) Hypokalemia: Hypokalemia Hypomagnesemia Replete electrolytes as needed NSVT started on Metoprolol 12.5mg BID Monitor electrolytes (7) Hypothyroidism: Weight loss TSH 0.037, free T4 3.1; may be contributing to patient's worsening tremor Reduced levothyroxine from 250 mcg to 225 mcg daily Will need repeat labs as outpatient in 4 to 6 weeks Further screening tests for weight loss as outpatient (8) Diastolic dysfunction: Echo 10/2018: EF 62%, grade 1 diastolic dysfunction, mild aortic valve stenosis Continue Lasix Monitor volume status Saturating well on room air (9) DM type 2 (diabetes mellitus, type 2): Hgb A1c 7.8 05/2019 Lantus and NovoLog per protocol while hospitalized (10) Hypertension: continue losartan (11) Chronic kidney disease, stage III (moderate): Baseline Cr low to mid 1s Cr at baseline Monitor renal function (12) DVT prophylaxis: SQ heparin CODE STATUS DNI DNR Disposition PT OT: Recommends rehab placement Subjective Patient is seen and examined at bedside Doing much better today No new complaint Sitting in chair comfortably Denies any chest pain, shortness of breath, dizziness, abdominal pain Appetite improved Discussed with family at bedside Needs rehab placement Review of Systems Review of Systems: All systems reviewed & are unremarkable except as noted in HPI & below Physical Exam Physical Exam: Physical Exam: Vitals signs as noted above General Appearance:Moderately built and nourished, frail, elderly, no apparent distress Head: normocephalic, Atraumatic Eyes: normal inspection, EOMI Neck: supple, Trachea midline Respiratory/Chest: Normal breath sounds, CTA Cardiovascular: S1, S2, + systolic murmur Abdomen/GI:Soft, Non tender, Bowel sounds present Extremities/Musculoskelatal:normal inspection, trace edema Neurologic/Psych:AAOX3, grossly no focal neurological deficits Skin: normal color, warm Results & Data Vital Signs (Past 12 Hours) Vital Signs Temp Pulse Pulse Resp BP Pulse Ox 07/13/19 16:10 95 07/13/19 15:37 98 07/13/19 15:00 36.6 C 70 112/68 98 07/13/19 11:00 36.4 C L 84 20 119/74 90 07/13/19 08:50 86 07/13/19 07:55 94 07/13/19 07:00 36.6 C 91 H 20 134/85 97 07/13/19 04:21 36.9 C 85 19 142/90 H 97 Laboratory Results BMP 07/13/19 05:19 Sodium 139 Potassium 3.4 L Chloride 102 Carbon Dioxide 34 H BUN 11 Creatinine 0.84 Glucose 165 H Calcium 8.7 (1) UTI (urinary tract infection) Hematuria presence: with hematuria Urinary tract infection type: site unspecified Qualified Code(s): N39.0 - Urinary tract infection, site not specified; R31.9 - Hematuria, unspecified
[2019-07-13] MEDS: INSULIN GLARGINE SOLOSTAR 100 UNITS/ML 3 ML PEN SC SCH (21:33)
[2019-07-13] MEDS: cefTRIAXone SODIUM 2,000 MG in DEXTROSE 5% 50 ML IV SCH (21:43)
[2019-07-14] MEDS: HEPARIN SOD 5,000 UNIT/0.5 ML VIAL SQ SCH ×3 (05:44→21:07)
[2019-07-14] MEDS: LEVOTHYROXINE SODIUM 75 MCG TABLET PO SCH (05:45)
[2019-07-14 06:15] LABS: BUN Creatinine Ratio 10.2 (10-20); Calcium 8.9 mg/dl (8.5-10.1); Creatinine Clr Calc Pharmacy 70.5 ml/min; Est GFR (African American) 88.3; Est GFR (Non-African American) 76.2; Magnesium 1.8 mg/dl (1.8-2.4); Potassium 3.5 mmol/L (3.5-5.1)
[2019-07-14] MEDS: POTASSIUM CHLORIDE 10 MEQ TABCR PO SCH ×3 (08:19→20:34)
[2019-07-14] MEDS: CHOLECALCIFEROL 1,000 UNITS TAB PO SCH (08:19)
[2019-07-14] MEDS: ATORVASTATIN 40 MG TAB PO SCH (08:19)
[2019-07-14] MEDS: ASPIRIN 81 MG ECTAB PO SCH (08:19)
[2019-07-14] MEDS: FUROSEMIDE 20 MG TAB PO SCH (08:19)
[2019-07-14] MEDS: LOSARTAN POTASSIUM 50 MG TAB PO SCH (08:19)
[2019-07-14] MEDS: METOPROLOL TARTRATE 25 MG TAB PO SCH ×2 (08:20→20:52)
[2019-07-14] MEDS: INSULIN ASPART 100 UNITS/ML 3 ML PEN SC SCH ×4 (08:21→20:49)
--- NOTE | 2019-07-14 10:30 | XRay Report ---
XR chest 1V portable CLINICAL HISTORY: Hypoxia COMPARISON STUDY: 07/09/2009 FINDINGS: The cardiac and mediastinal contours remain stable. There is persistent elevation of the ri ght hemidiaphragm. There are persistent bilateral interstitial pulmonary opacities. Diagnostic consid erations include an atypical appearance of interstitial pulmonary edema, chronic interstitial lung di sease, or an acute bilateral interstitial infectious/inflammatory process[ IMPRESSION: Stable bilateral nonspecific interstitial pulmonary opacities. ACT 112: Negative or not required by law. Electronically signed by: Felice Craft M.D. 07/14/2019 10:29 AM
[2019-07-14] MEDS ORDERED: FUROSEMIDE 20 MG in SYRINGE 0 ML IV ONE (12:45)
[2019-07-14] MEDS: LACTOBACILLUS ACIDOPHILUS (FLORANEX) TAB PO SCH ×2 (17:25→20:32)
--- NOTE | 2019-07-14 18:29 | Hospitalist Progress Note ---
Date of Service July 14, 2019 Assessment & Plan (1) Weakness: (2) UTI (urinary tract infection): Urinary tract infection E. coli bacteremia Blood culture: E. coli Urine culture: E. coli ECHO Reviewed IV Rocephin 2 g daily>> transition to Keflex Received gentle IV fluids Continue PT OT: Needs rehab placement Case management for discharge planning (3) Diarrhea: Possibly viral gastroenteritis Diarrhea improved (4) Elevated troponin: Mild Troponin elevation Likely demand ischemia ECHO no regional wall motion abnormalities Patient denies any chest pain (5) Hypomagnesemia: (6) Hypokalemia: Hypokalemia Hypomagnesemia Replete electrolytes as needed NSVT started on Metoprolol 12.5mg BID Monitor electrolytes (7) Hypothyroidism: Weight loss TSH 0.037, free T4 3.1; may be contributing to patient's worsening tremor Reduced levothyroxine from 250 mcg to 225 mcg daily Will need repeat labs as outpatient in 4 to 6 weeks Further screening tests for weight loss as outpatient (8) Diastolic dysfunction: Echo 10/2018: EF 62%, grade 1 diastolic dysfunction, mild aortic valve stenosis Hypoxia Continue Lasix Monitor volume status May need 2 step prior to discharge (9) DM type 2 (diabetes mellitus, type 2): Hgb A1c 7.8 05/2019 Lantus and NovoLog per protocol while hospitalized (10) Hypertension: continue losartan (11) Chronic kidney disease, stage III (moderate): Baseline Cr low to mid 1s Cr at baseline Monitor renal function (12) DVT prophylaxis: SQ heparin CODE STATUS DNI DNR Disposition PT OT: Recommends rehab placement Plan to discharge when accepted at rehab facility May need 2 step prior to discharge Subjective Patient is seen and examined at bedside States having minimal dizziness, dyspnea on exertion Denies any cough, chest pain, abdominal pain Needs rehab placement No other complaints Review of Systems Review of Systems: All systems reviewed & are unremarkable except as noted in HPI & below Physical Exam Physical Exam: Physical Exam: Vitals signs as noted above General Appearance:Moderately built and nourished, frail, elderly, no apparent distress Head: normocephalic, Atraumatic Eyes: normal inspection, EOMI Neck: supple, Trachea midline Respiratory/Chest: Normal breath sounds, CTA Cardiovascular: S1, S2, + systolic murmur Abdomen/GI:Soft, Non tender, Bowel sounds present Extremities/Musculoskelatal:normal inspection, trace edema Neurologic/Psych:AAOX3, grossly no focal neurological deficits Skin: normal color, warm Results & Data Vital Signs (Past 12 Hours) Vital Signs Temp Pulse Pulse Resp BP Pulse Ox 07/14/19 15:12 36.3 C L 81 18 115/71 96 07/14/19 15:06 81 07/14/19 11:36 36.7 C 80 17 138/84 95 07/14/19 08:40 36.5 C 86 95 H 19 146/85 H 94 Laboratory Results [facility] 07/14/19 05:13 Sodium 140 Potassium 3.5 Chloride 102 Carbon Dioxide 33 H BUN 8 Creatinine 0.76 Glucose 148 H Calcium 8.9 (1) UTI (urinary tract infection) Hematuria presence: with hematuria Urinary tract infection type: site unspecified Qualified Code(s): N39.0 - Urinary tract infection, site not specified; R31.9 - Hematuria, unspecified
[2019-07-14] MEDS: cephALEXin 500 MG CAP PO SCH (20:32)
[2019-07-14] MEDS: INSULIN GLARGINE SOLOSTAR 100 UNITS/ML 3 ML PEN SC SCH (21:19)
[2019-07-15] MEDS: HEPARIN SOD 5,000 UNIT/0.5 ML VIAL SQ SCH ×3 (05:56→20:47)
[2019-07-15] MEDS: LEVOTHYROXINE SODIUM 75 MCG TABLET PO SCH (05:56)
[2019-07-15 06:14] LABS: BUN Creatinine Ratio 10.2 (10-20); Calcium 9.1 mg/dl (8.5-10.1); Creatinine Clr Calc Pharmacy 53.2 ml/min; Est GFR (African American) 65.8; Est GFR (Non-African American) 56.7; Potassium 3.2 mmol/L (3.5-5.1)
[2019-07-15] MEDS: CHOLECALCIFEROL 1,000 UNITS TAB PO SCH (08:08)
[2019-07-15] MEDS: LACTOBACILLUS ACIDOPHILUS (FLORANEX) TAB PO SCH ×4 (08:08→20:41)
[2019-07-15] MEDS: ATORVASTATIN 40 MG TAB PO SCH (08:09)
[2019-07-15] MEDS: METOPROLOL TARTRATE 25 MG TAB PO SCH ×2 (08:09→20:55)
[2019-07-15] MEDS: cephALEXin 500 MG CAP PO SCH ×4 (08:09→20:49)
[2019-07-15] MEDS: ASPIRIN 81 MG ECTAB PO SCH (08:10)
[2019-07-15] MEDS: FUROSEMIDE 20 MG TAB PO SCH (08:10)
[2019-07-15] MEDS: LOSARTAN POTASSIUM 50 MG TAB PO SCH (08:10)
[2019-07-15] MEDS: POTASSIUM CHLORIDE 10 MEQ TABCR PO SCH ×3 (08:11→20:49)
--- NOTE | 2019-07-15 09:55 | Hospitalist Progress Note ---
Date of Service July 15, 2019 Assessment & Plan (1) Weakness: PT/OT-Rec ARF (2) UTI (urinary tract infection): Urinary tract infection E. coli bacteremia Blood culture: E. coli Urine culture: E. coli ECHO Reviewed IV Rocephin 2 g daily>> transitioned to Keflex Received gentle IV fluids Feels like her legs will give out Continue PT OT: Needs rehab placement Case management for discharge planning (3) Diarrhea: Possibly viral gastroenteritis Diarrhea improved (4) Elevated troponin: Mild Troponin elevation Likely demand ischemia ECHO no regional wall motion abnormalities Patient denies any chest pain (5) Hypomagnesemia: (6) Hypokalemia: Hypokalemia Hypomagnesemia Replete electrolytes as needed NSVT Metoprolol 12.5mg BID Monitor electrolytes (7) Hypothyroidism: Weight loss TSH 0.037, free T4 3.1; may be contributing to patient's worsening tremor Reduced levothyroxine from 250 mcg to 225 mcg daily Will need repeat labs as outpatient in 4 to 6 weeks Further screening tests for weight loss as outpatient (8) Diastolic dysfunction: Echo 10/2018: EF 62%, grade 1 diastolic dysfunction, mild aortic valve stenosis Hypoxia Continue Lasix Monitor volume status 2 step prior to discharge (9) DM type 2 (diabetes mellitus, type 2): Hgb A1c 7.8 05/2019 Lantus and NovoLog per protocol while hospitalized (10) Hypertension: continue losartan, lopressor (11) Chronic kidney disease, stage III (moderate): Monitor renal function (12) DVT prophylaxis: SQ heparin CODE STATUS DNI DNR Disposition PT OT: Recommends rehab placement Plan to discharge when accepted at rehab facility 2 step prior to discharge Labs checked, Repeat UA ROS-No Headache, No Visual Changes, No Nausea, No Vomiting, No Fever, No Chills, No Neck Pain or Stiffness, No Chest Pain, No Palpitations, No SOB, No NEW, No Cough, No Sputum, No Wheezing, No Abdominal Pain, No Diarrhea, No Hematemesis, No Hemoptysis, No Unexpected Weight Loss, No Flank pain, No Melena, No Hematochezia, No Frequency, No Urgency, No Burning, No Hematuria, No Rashes, No Diaphoresis. Appetite is Normal, +Gen Weakness, especially legs Physical Exam Gen-AAO x 3, NAD, Afebrile, Weak, obese Head-NCAT, EOMI, PERRLA, Anicteric Sclera, No Posterior Pharyngeal Erythema Neck-Supple, No JVD, No Thyromegaly, No Masses, No LAD, No Bruits Lungs-Clear to Auscultation Bilaterally, No Rales, No Rhonchi, No Wheezing, No Crepitus Chest-No S4, +S1, +S2, No S3, No Murmurs, No Rubs, No Gallops, No Ectopy Abdomen-Soft, Bowel Sounds Present, Non Tender, Non Distended, No Hepatomegaly, No Splenomegaly, No Palpable Masses, No Rebound, No Rigidity, No Guarding Musculoskeletal-Full Range of Motion Bilaterally, No CVAT Extremities-No Cyanosis, No Clubbing, No Edema Nuero-Cranial Nerves II-XII grossly intact, Motor WNL, DTRs WNL, Strength WNL, Non Focal Psych-Normal Mood Results & Data Vital Signs (Past 12 Hours) Vital Signs Temp Pulse Pulse Resp BP Pulse Ox 07/15/19 07:09 36.5 C 89 18 144/78 H 93 07/15/19 02:45 36.3 C L 80 20 122/80 95 07/15/19 01:01 90 07/14/19 23:48 36.4 C L 84 18 134/77 98 (1) UTI (urinary tract infection) Hematuria presence: with hematuria Urinary tract infection type: site unspecified Qualified Code(s): N39.0 - Urinary tract infection, site not specified; R31.9 - Hematuria, unspecified
[2019-07-15] MEDS: INSULIN ASPART 100 UNITS/ML 3 ML PEN SC SCH ×4 (10:20→20:45)
[2019-07-15] MEDS: POTASSIUM CHLORIDE / WTR 10 MEQ/100 ML PLCT IV SCH ×5 (10:44→17:49)
[2019-07-15 11:24] LABS: Appearance Urine Cloudy (Clear); Blood Urine Trace (Negative); Color Urine Dark Yellow; Epithelial Cell Urine Auto >30 /lpf (0-5); Glucose Urine UA Negative (Negative); Ketones Urine 1+ (Negative); Leukocyte Esterase Urine 1+ (Negative); Nitrite Urine Negative (Negative); Protein Urine 2+ (Negative); Specific Gravity Urine 1.022 (1.000-1.030); Urobilinogen Urine Negative (Negative); WBC Urine Automated >30 /hpf (0-5); pH Urine 5.5 (4.5-7.5)
[2019-07-15 11:35] LABS: Bilirubin Urine Negative (Negative); Ictotest Urine Negative (Negative)
[2019-07-15 12:05] LABS: Bacteria Urine Automated 1+ (Negative); RBC Urine Automated 0-4 /hpf (0-4)
[2019-07-15] MEDS: INSULIN GLARGINE SOLOSTAR 100 UNITS/ML 3 ML PEN SC SCH (20:46)
[2019-07-16] MEDS: LEVOTHYROXINE SODIUM 75 MCG TABLET PO SCH (05:54)
[2019-07-16] MEDS: HEPARIN SOD 5,000 UNIT/0.5 ML VIAL SQ SCH ×3 (05:55→21:05)
[2019-07-16 06:26] LABS: Hematocrit (blood only) 37.7 % (37-47); Hemoglobin 12.3 g/dL (12.0-16.0); Mean Corpuscular Hemoglobin 30.3 pg (25-34); Mean Corpuscular Hgb Conc 32.6 g/dL (32-36); Mean Corpuscular Volume 92.9 fL (80-100); Mean Platelet Volume 11.2 fL (7.4-10.4); Platelet Count 212 K/uL (130-400); RDW Coefficient of Variation 14.9 % (11.5-14.5); RDW Standard Deviation 50.4 fL (36.4-46.3); Red Blood Count 4.06 M/uL (4.2-5.4); White Blood Count 5.84 K/uL (4.8-10.8)
[2019-07-16 07:16] LABS: BUN Creatinine Ratio 14.8 (10-20); Calcium 9.1 mg/dl (8.5-10.1); Creatinine Clr Calc Pharmacy 58.2 ml/min; Est GFR (African American) 68.3; Est GFR (Non-African American) 58.9
[2019-07-16] MEDS: ASPIRIN 81 MG ECTAB PO SCH (08:08)
[2019-07-16] MEDS: FUROSEMIDE 20 MG TAB PO SCH (08:08)
[2019-07-16] MEDS: ATORVASTATIN 40 MG TAB PO SCH (08:09)
[2019-07-16] MEDS: cephALEXin 500 MG CAP PO SCH ×4 (08:09→21:31)
[2019-07-16] MEDS: CHOLECALCIFEROL 1,000 UNITS TAB PO SCH (08:09)
[2019-07-16] MEDS: POTASSIUM CHLORIDE 10 MEQ TABCR PO SCH ×3 (08:09→21:03)
[2019-07-16] MEDS: LACTOBACILLUS ACIDOPHILUS (FLORANEX) TAB PO SCH ×4 (08:13→21:02)
[2019-07-16] MEDS: METOPROLOL TARTRATE 25 MG TAB PO SCH ×2 (08:14→21:06)
[2019-07-16] MEDS: LOSARTAN POTASSIUM 50 MG TAB PO SCH (08:15)
[2019-07-16] MEDS: INSULIN ASPART 100 UNITS/ML 3 ML PEN SC SCH ×4 (09:05→21:04)
--- NOTE | 2019-07-16 09:54 | Hospitalist Progress Note ---
Date of Service July 16, 2019 Assessment & Plan (1) Sepsis: Low grade fever, tachycardia, tachypnea, leukocytosis. Probable sepsis secondary to UTI. Blood cultures obtained. Received broad spectrum antibiotic therapy with cefepime. Serum lactate 1.8. Did not require aggressive fluid resuscitation. (2) UTI (urinary tract infection): Experiencing dysuria at time of presentation. UA showed nitrates, leukocyte esterase, WBC's, RBC's, bacteria. Urine and blood cultures grew E coli. Initially treated with IV cefepime. Transitioned to oral therapy with cephalexin. No obstruction on renal US. (3) Hypokalemia: Serum K at time of admission 2.6. Hypokalemia probably due to diuretic therapy. Received replacement. K today = 4.0. Follow. (4) Hypertension: Continue losartan. (5) Pulmonary fibrosis: History of pulmonary fibrosis dating back to at least 2006. Chest x-rays during this admission interpreted at pulmonary vascular congestion vs interstitial lung disease. Echo showed normal LVEF. Pro-BNP normal. Radiographic findings most likely due to progressive pulmonary fibrosis. Echo showed dilated RV, trace TR, estimated PAP 41. Outpatient follow-up with Pulmonary Medicine. (6) Hypoxia: O2 sats 88% on RA at time of admission. Has been experiencing dyspnea on exertion for some time. Underlying pulmonary fibrosis as discussed above. Titrate supplemental O2. (7) Chronic kidney disease, stage III (moderate): Serum creatinine today = 0.94. Follow. (8) DM type 2 (diabetes mellitus, type 2): Usually managed with Lantus / NovoLog at home. Blood sugars high at times. Insulin dosing adjusted. FBS today = 111. (9) Hypothyroidism: Continue levothyroxine. (10) DVT prophylaxis: SQ heparin. Ambulate. (11) Discharge planning issues: Functional status not back to baseline. PT / OT recommend skilled care or inpatient rehab. Patient does not feel that she will be able to tolerate 3 hrs of therapies / day, so skilled care best option. Case Management consulted. Family Medicine follow-up with Dr. Forrest Ortega. Son and [id number] given update this afternoon. Subjective Recheck for multiple problems. Patient seen in their room around 0940. Feels better, but still weaker than baseline. No fever. No flank pain, dysuria, hematuria. Review of Systems: Constitutional- no fever. Cardiac- no chest pain. Pulmonary- mild dyspnea on exertion, no cough. GI- no nausea, vomiting, diarrhea, melena, hematochezia. - as noted above. Otherwise, as noted above. Physical Exam Constitutional: no acute distress Eyes: + anicteric sclerae Respiratory: no respiratory distress Auscultation: + rales (scattered, fine) Cardiovascular: Rate/Rhythm: regular rate and regular rhythm Heart Sounds: + murmur (II/ left sternal border); no gallop and no cardiac rub Vessels: no JVD Extremities: + edema (trace pretibial); no calf tenderness Gastrointestinal (Abdomen): normal bowel sounds, soft, nontender, no hepatosplenomegaly Skin: no rashes, warm and dry Psychiatric: Orientation: alert and oriented x 3 Results & Data Vital Signs (Past 12 Hours) Vital Signs Temp Pulse Pulse Resp BP BP Pulse Ox 07/16/19 07:39 36.4 C L 85 16 150/87 H 99 07/16/19 04:00 36.3 C L 79 20 121/69 96 07/16/19 01:00 84 07/15/19 23:28 36.5 C 84 20 105/71 97 Laboratory Results Laboratory Results - last 24 hr 07/16/19 07/16/19 07/16/19 06:02 06:02 06:02 WBC 5.84 RBC 4.06 L Hgb 12.3 Hct 37.7 MCV 92.9 MCH 30.3 MCHC 32.6 RDW Std Deviation 50.4 H RDW Coeff of Jelly 14.9 H Plt Count 212 MPV 11.2 H Sodium 137 Potassium 4.0 D Chloride 102 Carbon Dioxide 31 Anion Gap 4.0 BUN 14 Creatinine 0.94 Est Cr Clr Drug Dosing 58.2 Est GFR ( Amer) 68.3 Est GFR (Non-Af Amer) 58.9 BUN/Creatinine Ratio 14.8 Glucose 109 H POC Glucose Calcium 9.1 NT-Pro-B Natriuret Pep 1051 07/16/19 07/16/19 07/16/19 07:47 11:46 16:33 WBC RBC Hgb Hct MCV MCH MCHC RDW Std Deviation RDW Coeff of Jelly Plt Count MPV Sodium Potassium Chloride Carbon Dioxide Anion Gap BUN Creatinine Est Cr Clr Drug Dosing Est GFR ( Amer) Est GFR (Non-Af Amer) BUN/Creatinine Ratio Glucose POC Glucose 111 H 172 H 197 H Calcium NT-Pro-B Natriuret Pep 07/16/19 20:43 WBC RBC Hgb Hct MCV MCH MCHC RDW Std Deviation RDW Coeff of Jelly Plt Count MPV Sodium Potassium Chloride Carbon Dioxide Anion Gap BUN Creatinine Est Cr Clr Drug Dosing Est GFR ( Amer) Est GFR (Non-Af Amer) BUN/Creatinine Ratio Glucose POC Glucose 196 H Calcium NT-Pro-B Natriuret Pep Microbiology 07/15/19 11:00 Urine,Clean Catch Urine Culture - Preliminary Streptococcus species 07/14/19 16:05 Stool Escherichia coli Shiga Toxins Test - Preliminary 07/14/19 16:05 Stool Stool Culture - Preliminary No Salmonella isolated to date, No Shigella isolated to date, No Campylobacter jejuni isolated to date. 07/09/19 13:35 Blood Aerobic Blood Culture - Final No growth in Aerobic bottle after 5 days. 07/09/19 13:35 Blood Anaerobic Blood Culture - Final Escherichia coli 07/09/19 13:16 Blood Aerobic Blood Culture - Final No growth in Aerobic bottle after 5 days. 07/09/19 13:16 Blood Anaerobic Blood Culture - Final Escherichia coli 07/09/19 12:58 Urine,Clean Catch Urine Culture - Final Escherichia coli (1) UTI (urinary tract infection) Hematuria presence: with hematuria Urinary tract infection type: site unspecified Qualified Code(s): N39.0 - Urinary tract infection, site not specified; R31.9 - Hematuria, unspecified
--- NOTE | 2019-07-16 11:04 | Ultrasound Report ---
RENAL ULTRASOUND CLINICAL HISTORY: urinary tract infection COMPARISON STUDY: CT of the abdomen and pelvis October 01, 2013. TECHNIQUE: Sonography of the kidneys and the urinary bladder was performed. FINDINGS: The right kidney measures 10.7 x 5.2 x 5.1 cm and the left measures 9.4 x 5.6 x 4.9 cm. The re is a 1.9 cm right renal cyst. There is no hydronephrosis. There are equivocal tiny bilateral renal calculi. Both ureteral jets were identified. There is mild renal cortical thinning. IMPRESSION: 1. No hydronephrosis. 2. Equivocal tiny bilateral renal calculi. 3. Mild bilateral renal cortical thinning. ACT 112: Negative or not required by law. Electronically signed by: Andrew Sue M.D. 07/16/2019 11:02 AM
--- NOTE | 2019-07-16 13:19 | XRay Report ---
XR chest 2V PA/lateral HISTORY: dyspnea, abnormal chest x-ray COMPARISON: Chest 07/14/2019. FINDINGS: No pneumothorax. No pleural effusions. There are low lung volumes. The heart remains stable in size. Diffuse interstitial thickening and perihilar opacities persist. There are a few bibasilar linear densities suggesting subsegmental atelectasis. IMPRESSION: 1. No change compared to the prior study. 2. Low lung volumes with bibasilar linear densities suggesting subsegmental atelectasis. 3. Diffuse interstitial opacities persist. ACT 112: Negative or not required by law. Electronically signed by: Rodolfo Ferreira M.D. 07/16/2019 1:18 PM
[2019-07-16] MEDS: INSULIN GLARGINE SOLOSTAR 100 UNITS/ML 3 ML PEN SC SCH (21:04)
[2019-07-17] MEDS: HEPARIN SOD 5,000 UNIT/0.5 ML VIAL SQ SCH ×2 (05:44→13:38)
[2019-07-17] MEDS: LEVOTHYROXINE SODIUM 75 MCG TABLET PO SCH (05:45)
[2019-07-17 06:50] LABS: Estimated Average Glucose 189 mg/dl; Hemoglobin A1C 8.2 % (4.5-5.6)
[2019-07-17 07:05] LABS: BUN Creatinine Ratio 13.6 (10-20); Calcium 9.9 mg/dl (8.5-10.1); Creatinine Clr Calc Pharmacy 50.1 ml/min; Est GFR (African American) 57.1; Est GFR (Non-African American) 49.3; Potassium 4.1 mmol/L (3.5-5.1)
[2019-07-17] MEDS: ATORVASTATIN 40 MG TAB PO SCH (08:00)
[2019-07-17] MEDS: CHOLECALCIFEROL 1,000 UNITS TAB PO SCH (08:00)
[2019-07-17] MEDS: LACTOBACILLUS ACIDOPHILUS (FLORANEX) TAB PO SCH ×2 (08:01→11:34)
[2019-07-17] MEDS: cephALEXin 500 MG CAP PO SCH ×2 (08:01→13:39)
[2019-07-17] MEDS: LOSARTAN POTASSIUM 50 MG TAB PO SCH (08:01)
[2019-07-17] MEDS: FUROSEMIDE 20 MG TAB PO SCH (08:02)
[2019-07-17] MEDS: ASPIRIN 81 MG ECTAB PO SCH (08:02)
[2019-07-17] MEDS: POTASSIUM CHLORIDE 10 MEQ TABCR PO SCH ×2 (08:02→13:38)
[2019-07-17] MEDS: METOPROLOL TARTRATE 25 MG TAB PO SCH (08:02)
[2019-07-17] MEDS: INSULIN ASPART 100 UNITS/ML 3 ML PEN SC SCH ×3 (08:15→17:41)
--- NOTE | 2019-07-17 14:41 | Hospitalist Progress Note ---
Date of Service July 17, 2019 Assessment & Plan (1) Sepsis: Low grade fever, tachycardia, tachypnea, leukocytosis. Probable sepsis secondary to UTI. Blood cultures obtained. Received broad spectrum antibiotic therapy with cefepime. Serum lactate 1.8. Did not require aggressive fluid resuscitation. (2) UTI (urinary tract infection): Experiencing dysuria at time of presentation. UA showed nitrates, leukocyte esterase, WBC's, RBC's, bacteria. Urine and blood cultures grew E coli. Initially treated with IV cefepime. Transitioned to oral therapy with cephalexin. No obstruction on renal US. (3) Asymptomatic bacteriuria: Patient had sepsis at time of admission with E coli in blood and urine as described above. Repeat UA done on 07/15 showed WBC's and many epithelial cells. Reflex urine culture 07/15 growing 40,000 CFU of vancomycin resistant enterococcus. No fever, flank pain, dysuria. Give lack of symptoms, many epithelial cells, and low colony counts, seems most likely that urine culture from 07/15 results reflect either contaminated specimen or asymptomatic bacteriuria with low colony counts, not a new urinary tract infection. No indication for treatment of VRE at this time. Reassess UA / culture as needed if patient becomes symptomatic. (4) Hypokalemia: Serum K at time of admission 2.6. Hypokalemia probably due to diuretic therapy. Received replacement. K today = 4.1. Follow. (5) Hypertension: Continue losartan. (6) Pulmonary fibrosis: History of pulmonary fibrosis dating back to at least 2006. Chest x-rays during this admission interpreted at pulmonary vascular congestion vs interstitial lung disease. Echo showed normal LVEF. Pro-BNP normal. Radiographic findings most likely due to progressive pulmonary fibrosis. Echo showed dilated RV, trace TR, estimated PAP 41. Weaned off O2 and maintaining adequate oxygenation on RA. Outpatient follow-up with Pulmonary Medicine. (7) Hypoxia: O2 sats 88% on RA at time of admission. Has been experiencing dyspnea on exertion for some time. Underlying pulmonary fibrosis as discussed above. Weaned off O2 and maintaining adequate oxygenation on RA. (8) Chronic kidney disease, stage III (moderate): Serum creatinine today = 1.09. Follow. (9) DM type 2 (diabetes mellitus, type 2): Usually managed with Lantus / NovoLog at home. Blood sugars high at times. Insulin dosing adjusted. FBS today = 133. Discharge on usual regimen: Lantus 22 units HS NovoLog 12 units with breakfast 14 units with lunch 14 units with supper + correction factor of 1:30 for AC blood sugars over 160 (10) Hypothyroidism: TSH 17.7, free T4 0.037. Last TSH in clinic was 0.36 on 06/12/19. Has been prescribed 200 mcg daily since at least September 2018/ Abnormal TFT's at this time could be due to acute illness, noncompliance, or i mproper administration. Continue levothyroxine 200 mcg daily at this time. Ensure proper administration on empty stomach. Recheck TFT's in about 4 weeks, then titrate therapy as needed. (11) DVT prophylaxis: SQ heparin. Ambulate. (12) Discharge planning issues: Functional status not back to baseline. PT / OT recommend skilled care or inpatient rehab. Patient does not feel that she will be able to tolerate 3 hrs of therapies / day, so skilled care best option. Case Management consulted. Arrangements being made for transfer to [facility]. Family Medicine follow-up with Dr. Forrest Ortega. Subjective Recheck for multiple problems. Patient seen in their room around 1140. Doing well. No fever. No flank pain, dysuria, hematuria. Weaned off O2. Review of Systems: Constitutional- no fever. Cardiac- no chest pain. Pulmonary- mild dyspnea on exertion, no cough. GI- no nausea, vomiting, diarrhea, melena, hematochezia. - as noted above. Otherwise, as noted above. Physical Exam Constitutional: no acute distress Eyes: + anicteric sclerae Respiratory: no respiratory distress Auscultation: + rales (scattered, fine) Cardiovascular: Rate/Rhythm: regular rate and regular rhythm Heart Sounds: + murmur (II/ left sternal border); no gallop and no cardiac rub Vessels: no JVD Extremities: + edema (trace pretibial); no calf tenderness Gastrointestinal (Abdomen): normal bowel sounds, soft, nontender, no hepatosplenomegaly Skin: no rashes, warm and dry Psychiatric: Orientation: alert and oriented x 3 Results & Data Vital Signs (Past 12 Hours) Vital Signs Temp Pulse Pulse Resp BP BP Pulse Ox 07/17/19 11:38 36.3 C L 78 20 100/67 97 07/17/19 08:25 88 07/17/19 07:24 36.5 C 88 18 125/79 97 07/17/19 04:44 36.6 C 87 16 107/69 97 Laboratory Results 07/16/19 06:02 07/17/19 05:58 (1) UTI (urinary tract infection) Hematuria presence: with hematuria Urinary tract infection type: site unspecified Qualified Code(s): N39.0 - Urinary tract infection, site not specified; R31.9 - Hematuria, unspecified
--- NOTE | 2019-07-17 15:41 | Discharge Summary ---
Date of Service Date of Admission: 07/09/19 Date of Discharge: 07/17/19 Admission HPI Per Admitting Provider 74-year-old female who presents the ED for evaluation of generalized weakness and tremors. Patient reports she has not been feeling well for the past couple of days. She is noted increased generalized weakness and tremors. She reports that typically she can ambulate with her walker however has not been able to do that. She also has been having diarrhea, reports 3-4 episodes per day. Denies bright red bleeding per rectum or dark tarry stools. Reports her appetite has been very poor, which is been ongoing issue for the past several weeks. Patient reports a 20 pound unintentional weight loss over the past couple of months. No abdominal pain, nausea, vomiting. She denies fevers and chills. No chest pain. Reports chronic exertional shortness of breath which is unchanged from baseline. She has lower extremity edema which is unchanged from baseline as well. No orthopnea. She denies lightheadedness, dizziness, diaphoresis, syncopal events. No urinary symptoms. In the ED, UA suggest UTI. Labs show K+ 2.6, MG +1.3, mildly elevated troponin 0.09, TSH 0.037, free T4 3.1. Patient was given IV cefepime, potassium and magnesium replacements, IVF. Principal Diagnosis sepsis secondary to E coli pyelonephritis Discharge Data Allergies Allergy/AdvReac Type Severity Reaction Status Date / Time Sulfa (Sulfonamide Allergy Mild Rash Verified 07/09/19 13:43 Antibiotics) cefuroxime Allergy Unknown UNKNOWN Verified 07/09/19 13:43 primidone Allergy Unknown EAR Verified 07/09/19 13:43 RINGING, DIZZY Consultations 07/09/19 14:22 ED Decision to Admit Stat 07/09/19 17:09 Consult Case Management - Discharge Planning Routine Ordered Studies 07/16/19 09:55 US renal/blad retro comp Routine Hospital Course (1) Sepsis: Low grade fever, tachycardia, tachypnea, leukocytosis. Probable sepsis secondary to UTI. Blood cultures obtained. Received broad spectrum antibiotic therapy with cefepime. Serum lactate 1.8. Did not require aggressive fluid resuscitation. (2) UTI (urinary tract infection): Experiencing dysuria at time of presentation. UA showed nitrates, leukocyte esterase, WBC's, RBC's, bacteria. Urine and blood cultures grew E coli. Initially treated with IV cefepime. Transitioned to oral therapy with cephalexin. No obstruction on renal US. (3) Asymptomatic bacteriuria: Patient had sepsis at time of admission with E coli in blood and urine as described above. Repeat UA done on 07/15 showed WBC's and many epithelial cells. Reflex urine culture 07/15 growing 40,000 CFU of vancomycin resistant enterococcus. No fever, flank pain, dysuria. Give lack of symptoms, many epithelial cells, and low colony counts, seems most likely that urine culture from 07/15 results reflect either contaminated specimen or asymptomatic bacteriuria with low colony counts, not a new urinary tract infection. No indication for treatment of VRE at this time. Reassess UA / culture as needed if patient becomes symptomatic. (4) Hypokalemia: Serum K at time of admission 2.6. Hypokalemia probably due to diuretic therapy. Received replacement. K today = 4.1. KCl dose increased to 20 mEq BID. Follow. Recheck BMP in 1 week. (5) Hypomagnesemia: Mg 1.3 at time of admission. Received replacement. Mg 1.8 on 07/14. Discharge on magnesium chloride BID. Follow. (6) Hypertension: Continue losartan. (7) Pulmonary fibrosis: History of pulmonary fibrosis dating back to at least 2006. Chest x-rays during this admission interpreted at pulmonary vascular congestion vs interstitial lung disease. Echo showed normal LVEF. Pro-BNP normal. Radiographic findings most likely due to progressive pulmonary fibrosis. Echo showed dilated RV, trace TR, estimated PAP 41. Weaned off O2 and maintaining adequate oxygenation on RA. Outpatient follow-up with Pulmonary Medicine. (8) Hypoxia: O2 sats 88% on RA at time of admission. Has been experiencing dyspnea on exertion for some time. Underlying pulmonary fibrosis as discussed above. Weaned off O2 and maintaining adequate oxygenation on RA. (9) Chronic kidney disease, stage III (moderate): Serum creatinine day of discharge 1.09. Follow. (10) DM type 2 (diabetes mellitus, type 2): Usually managed with Lantus / NovoLog at home. Blood sugars high at times. Insulin dosing adjusted. FBS day of discharge 133. Discharge on usual regimen: Lantus 22 units HS NovoLog 12 units with breakfast 14 units with lunch 14 units with supper + correction factor of 1:30 for AC blood sugars over 160 (11) Hypothyroidism: TSH 0.037, free T4 3.10. Last TSH in clinic was 0.36 on 06/12/19. Has been prescribed 250 mcg daily since at least September 2018/ Abnormal TFT's at this time could be due to acute illness. Continue levothyroxine 250 mcg daily at this time. Recheck TFT's in about 4 weeks, then titrate therapy as needed. (12) DVT prophylaxis: SQ heparin. Ambulate. (13) Discharge planning issues: Functional status not back to baseline. PT / OT recommend skilled care or inpatient rehab. Patient does not feel that she will be able to tolerate 3 hrs of therapies / day, so skilled care best option. Case Management consulted. Arrangements being made for transfer [facility]. Family Medicine follow-up with Dr. Forrest Ortega. Total Time Total Time Spent Total Time Spent (In Minutes): 50 Discharge Plan Discharge Items Patient Disposition: Transfer Custodial Fac Reason For Visit: kidney infection due to E coli Discharge Diagnosis: kidney infection due to E coli Condition on Discharge: Good Activity: As commented below Activity Comment: Gradually increase activity as tolerated with walker and assistance. Non-emergency contact: Primary Care Provider and Hospitalist Call non-emergency contact if: you have any medication questions and your symptoms worsen Follow-up/Referrals: Forrest Ortega, DO [Primary Care Provider] - 07/17/19 12:55 pm (Please arrange for follow-up appointment at time of discharge from [facility].) Diet: Carb Consistent or DM2 and Heart Healthy Addtl Attending Provider Instructions: Blood sugars with meals and at bedtime. NovoLog instructions: 12 units with breakfast 14 units with lunch 14 units with supper + correction factor of 1:30 for AC blood sugars over 160 Please check UA if patient develops fever or dysuria. Please check basic metabolic profile in 1 week and then as clinically indicated. Please recheck TSH in about 4 weeks. O2 as needed to maintain sats > 90%. Fall precautions. Please arrange for follow-up with [facility] when convenient re: pulmonary fibrosis. Thank you for receiving this patient in transfer. Please call if you have any questions. Isael Kaba Pending Studies at Discharge: No Stand-Alone Forms: My [facility] Skilled Items Patient informed of condition?: Yes DNR: Yes Discharge Level of Care: Skilled Communicable Disease: Yes (VRE in urine) Discharge Prognosis: Improving Lines: None Urinary Catheter: No Medications and DC Order Prescriptions: New potassium chloride 10 mEq capsule, extended release 20 meq PO BID Qty: 120 RF: 0 cephalexin 500 mg capsule 500 mg PO TID 7 Days Qty: 21 RF: 0 Continued losartan 100 mg tablet 100 mg PO DAILY Qty: 30 RF: 5 hydroxyzine HCl 25 mg tablet 25 mg PO HS PRN (Reason: Itching) RF: 0 Lantus Solostar U-100 Insulin 100 unit/mL (3 mL) Insulin Pen 22 unit SUBCUT HS RF: 0 insulin aspart U-100 [Novolog Flexpen U-100 Insulin] 100 unit/mL (3 mL) Insulin Pen 0 unit SUBCUT DIRECTED RF: 0 cholecalciferol (vitamin D3) [Vitamin D3] 1,000 unit Tablet 1,000 unit PO DAILY RF: 0 furosemide [Lasix] 20 mg Tablet 20 mg PO DAILY RF: 0 atorvastatin 40 mg tablet 40 mg PO DAILY RF: 0 aspirin 325 mg Tablet 650 mg PO DAILY RF: 0 levothyroxine 50 mcg tablet 50 mcg PO QAM RF: 0 levothyroxine 200 mcg tablet 200 mcg PO QAM RF: 0 Juice Plus Fibre Liquid 4 cap PO BID RF: 0 Discontinued potassium chloride 10 mEq capsule, extended release 10 meq PO TID RF: 0 Admission Data Admit Date/Time: 07/09/19 15:03 Attending Provider: Isael Kaba Admit Provider: Dewayne Carnes Primary Care Provider: Forrest Ortega Other Providers: Dewayne Carnes ; [facility] ; Dewayne Troncoso ; [place]
--- NOTE | 2019-07-17 17:30 | Communication Note ---
Date of Service: July 17, 2019 Phone report given to receiving physician at [facility].
== END 2019-07-17 18:21 | DRG 872 ==
LOC: ED 11:49 → 2N 15:03 → SUATTDRO 15:03 → 2N 16:24 → 2W 07-17 12:31